=== PATIENT | female | born 1945 | race Caucasian/White ===

== ENCOUNTER 2018-10-27 11:46 | Observation (INO) | payer MEDICARE ==
[2018-10-27] MEDS ORDERED: Sodium Chloride 0.9% 1000 ML 1,000 ML IV STA (12:16)
[2018-10-27 12:28] LABS: BASOPHIL % 0.4 % (0.0-0.4); Basophil (Absolute #) 0.04 (0-0.4); Eosinophil % 1.5 % (0.00-5.0); Eosinophil (Absolute #) 0.15 (0-0.5); Granulocytes % 72.1 % (36.0-66.0); Hematocrit 24.3 % (35-47); Lymphocyte (Absolute #) 1.49 (1.0-4.6); Lymphocytes % 14.7 % (24.0-44.0); Mean Cell Volume 76.7 fl (78-100); Mean Corpuscular Hgb Concent. 28.8 g/dl (32-36); Mean Platelet Volume 8.7 fl (6-9.5); Monocyte (Absolute #) 1.14 (0.0-1.3); Monocytes % 11.3 % (0.0-12.0); Platelet Count 604 K/mm3 (150-450); Red Blood Count 3.17 M/mm3 (4.1-5.4); White Blood Count 10.1 K/mm3 (4.0-10.5)
[2018-10-27 12:32] LABS: INR 1.69 (0.8-3.0); PROTIME 19.8 SECONDS (9.95-12.35)
[2018-10-27] MEDS ORDERED: Sodium Chloride 0.9% 1000 ML 1,000 ML ONE (12:37)
[2018-10-27 12:47] LABS: ALBUMIN 3.4 g/dL (3.5-5.0); ALKALINE PHOSPHATASE 47 U/L (38-126); ANION GAP 14.3 MEQ/L (5-15); BLOOD UREA NITROGEN 17 mg/dL (7-17); CHLORIDE 99 mmol/L (98-107); Calcium 8.8 mg/dL (8.4-10.2); Carbon Dioxide 25 mmol/L (22-30); Creatinine 1 0.71 mg/dL (0.52-1.04); Glucose 184 mg/dL (74-106); NT PRO BNP 4940 pg/mL (0-900); SGOT/AST 15 U/L (14-36); SGPT/ALT 11 U/L (0-35); SODIUM 135 mmol/L (137-145); Total Protein 7.4 g/dL (6.3-8.2)
--- NOTE | 2018-10-27 13:09 | ERPHSYRPT ---
- History of Present Illness Time Seen by Provider: 10/27/18 11:55 Source: patient, family Patient Subjective Stated Complaint: generalized weakness, fell yesterday and hit left ribs/side on the arms of her wheelchair, has become increasingly weaker since Wednesday Triage Nursing Assessment: Pt brought in by wheelchair and needed full assistance to get into gown and bed, BP 152/70, P 108, afebrile, mild weakness on left upper and lower side, no edema, denies pain while laying down Physician History: 72 y/o white female with know anemia present with worsening weakness over last 5 days. pt so weak yesterday she fell into wheelchair and complains of right rib pain. denies cp, denies abd pain. no n/v/d. no known active bleeding. pt is on Eliquis. pt states she is eating and drinking as usual Timing/Duration: day(s) (5) Severity: moderate Associated Symptoms: weakness, No nausea, No vomiting, No abdominal pain, No shortness of breath, No chest pain, No syncope Allergies/Adverse Reactions: aspirin Allergy (Verified 10/27/18 12:02) codeine Allergy (Verified 10/27/18 12:02) methocarbamol [From Robaxin] Allergy (Verified 10/27/18 12:02) morphine Adverse Reaction (Verified 10/27/18 12:02) Home Medications: Apixaban [Eliquis] 5 mg PO DAILY 10/27/18 [History] Insulin Lispro Protamin/Lispro [Humalog Mix 75-25 Kwikpen] 20 units SQ BID 10/27 [History] Magnesium Oxide [Magnesium] 400 mg PO DAILY 10/27/18 [History] Potassium Chloride 10 Meq Tab* [Klor Con 10 MEQ] 20 meq PO DAILY 10/27/18 [ History] - Review of Systems Constitutional: Weakness Eyes: No Symptoms Ears, Nose, & Throat: No Symptoms Respiratory: No Symptoms Cardiac: No Symptoms Abdominal/Gastrointestinal: No Symptoms Genitourinary Symptoms: No Symptoms Musculoskeletal: No Symptoms Skin: No Symptoms Neurological: No Symptoms Psychological: No Symptoms Endocrine: No Symptoms Hematologic/Lymphatic: Anemia Immunological/Allergic: No Symptoms All Other Systems: Reviewed and Negative - Past Medical History Pertinent Past Medical History: Yes Neurological History: No Pertinent History ENT History: No Pertinent History Cardiac History: Arrhythmia, Coronary Artery Disease, High Cholesterol Respiratory History: No Pertinent History Endocrine Medical History: Diabetes Type II - Past Surgical History Past Surgical History: Yes Cardiac: Pacemaker, Other Gastrointestinal: Appendectomy Musculoskeletal: Other Female Surgical History: Tubal Ligation Other Surgical History: cervical and lower back surgeries, - Social History Smoking Status: Current every day smoker How long have you smoked: 60 years Exposure to second hand smoke: Yes Drug Use: none Patient Lives Alone: No - Nursing Vital Signs Nursing Vital Signs: Initial Vital Signs Temperature 98.4 F 10/27/18 11:46 Pulse Rate 110 H 10/27/18 11:46 Respiratory Rate 17 10/27/18 11:46 Blood Pressure 152/70 10/27/18 11:46 O2 Sat by Pulse Oximetry 99 10/27/18 11:46 Pain Scale Pain Intensity 0 - Physical Exam General Appearance: no apparent distress, mild distress, alert, thin Eye Exam: PERRL/EOMI Ears, Nose, Throat Exam: normal ENT inspection, moist mucous membranes Neck Exam: normal inspection, non-tender, supple, full range of motion Respiratory Exam: normal breath sounds, lungs clear, airway intact, No chest tenderness, No respiratory distress Cardiovascular Exam: regular rate/rhythm, normal heart sounds, normal peripheral pulses Gastrointestinal/Abdomen Exam: soft, normal bowel sounds, No tenderness, No guarding, No rebound Pelvic Exam: not done Rectal Exam: not done Back Exam: normal inspection, normal range of motion, CVA tenderness Extremity Exam: normal inspection, normal range of motion, pelvis stable Neurologic Exam: alert, oriented x 3, cooperative, bdc manager II-XII nml as tested Skin Exam: normal color, warm, dry Lymphatic Exam: No adenopathy SpO2 Interpretation: normal SpO2: 99 O2 Delivery: Room Air - Course EKG Interpreted by Me: RATE (106), Sinus Rhythm, Sinus Tach, NORMAL AXIS, NORMAL INTERVALS, NORMAL QRS Ordered Tests: Active Orders 24 hr Category Date Time Status Processing Associate STAT Care 10/27/18 12:18 Active EKG-ER Only STAT Care 10/27/18 12:16 Active IV Insertion STAT Care 10/27/18 12:16 Active Pulse Oximetry (ED) STAT Care 10/27/18 12:16 Active RIBS UNILATERAL Stat Exams 10/27/18 13:44 Ordered CBC W DIFF Stat Lab 10/27/18 12:15 Completed CMP Stat Lab 10/27/18 12:15 Completed MAGNESIUM Stat Lab 10/27/18 12:15 Completed NT PRO BNP Stat Lab 10/27/18 12:15 Completed PROTIME WITH INR Stat Lab 10/27/18 12:15 Completed TROPONIN Q3H Lab 10/27/18 12:15 Completed TROPONIN Q3H Lab 10/27/18 15:30 Ordered TROPONIN Q3H Lab 10/27/18 18:30 Ordered TROPONIN Q3H Lab 10/27/18 21:30 Ordered TROPONIN Q3H Lab 10/28/18 00:30 Ordered UA W/RFX UR CULTURE Stat Lab 10/27/18 13:56 Ordered Transfer Order Routine Transfer 10/27/18 Ordered Medication Summary Generic Name Dose Route Start Last Admin Trade Name Freq PRN Reason Stop Dose Admin Furosemide 20 mg 10/28/18 14:04 Lasix 20 Mg/2 Ml IV 10/28/18 14:05 STAT ONE Discontinued Medications Generic Name Dose Route Start Last Admin Trade Name Freq PRN Reason Stop Dose Admin Sodium Chloride 1,000 mls @ 999 mls/hr 10/27/18 12:16 10/27/18 13:43 Sodium Chloride 0.9% 1000 Ml IV 10/27/18 13:16 Infused .Q1H1M STA Infusion Sodium Chloride Confirm 10/27/18 12:37 Sodium Chloride 0.9% 1000 Ml Administered 10/27/18 12:38 Dose 1,000 mls @ ud .ROUTE .STK-MED ONE Lab/Rad Data: Laboratory Result Diagrams 10/27/18 12:15 10/27/18 12:15 Laboratory Results 10/27/18 10/27/18 10/27/18 Range/Units 12:15 12:15 12:15 WBC (4.0-10.5) K/mm3 RBC (4.1-5.4) M/mm3 Hgb (12.0-16.0) gm/dl Hct (35-47) % MCV (78-100) fl MCH (26-32) pg MCHC (32-36) g/dl RDW (11.5-14.0) % Plt Count (150-450) K/mm3 MPV (6-9.5) fl Gran % (36.0-66.0) % Eos # (Auto) (0-0.5) Absolute Lymphs (auto) (1.0-4.6) Absolute Monos (auto) (0.0-1.3) Lymphocytes % (24.0-44.0) % Monocytes % (0.0-12.0) % Eosinophils % (0.00-5.0) % Basophils % (0.0-0.4) % Absolute Granulocytes (1.4-6.9) Basophils # (0-0.4) PT 19.8 H (9.95-12.35) SECONDS INR 1.69 (0.8-3.0) Sodium 135 L (137-145) mmol/L Potassium 4.0 (3.5-5.1) mmol/L Chloride 99 (98-107) mmol/L Carbon Dioxide 25 (22-30) mmol/L Anion Gap 14.3 (5-15) MEQ/L BUN 17 (7-17) mg/dL Creatinine 0.71 (0.52-1.04) mg/dL Estimated GFR > 60.0 ML/MIN Glucose 184 H (74-106) mg/dL Calcium 8.8 (8.4-10.2) mg/dL Magnesium 2.0 (1.6-2.3) mg/dL Total Bilirubin 0.30 (0.2-1.3) mg/dL AST 15 (14-36) U/L ALT 11 (0-35) U/L Alkaline Phosphatase 47 (38-126) U/L Troponin I < 0.012 (0.000-0.034) ng/mL NT-Pro-B Natriuret Pep 4940 H (0-900) pg/mL Serum Total Protein 7.4 (6.3-8.2) g/dL Albumin 3.4 L (3.5-5.0) g/dL 10/27/18 Range/Units 12:15 WBC 10.1 (4.0-10.5) K/mm3 RBC 3.17 L (4.1-5.4) M/mm3 Hgb 7.0 L (12.0-16.0) gm/dl Hct 24.3 L (35-47) % MCV 76.7 L (78-100) fl MCH 22.0 L (26-32) pg MCHC 28.8 L (32-36) g/dl RDW 17.0 H (11.5-14.0) % Plt Count 604 H (150-450) K/mm3 MPV 8.7 (6-9.5) fl Gran % 72.1 H (36.0-66.0) % Eos # (Auto) 0.15 (0-0.5) Absolute Lymphs (auto) 1.49 (1.0-4.6) Absolute Monos (auto) 1.14 (0.0-1.3) Lymphocytes % 14.7 L (24.0-44.0) % Monocytes % 11.3 (0.0-12.0) % Eosinophils % 1.5 (0.00-5.0) % Basophils % 0.4 (0.0-0.4) % Absolute Granulocytes 7.30 H (1.4-6.9) Basophils # 0.04 (0-0.4) PT (9.95-12.35) SECONDS INR (0.8-3.0) Sodium (137-145) mmol/L Potassium (3.5-5.1) mmol/L Chloride (98-107) mmol/L Carbon Dioxide (22-30) mmol/L Anion Gap (5-15) MEQ/L BUN (7-17) mg/dL Creatinine (0.52-1.04) mg/dL Estimated GFR ML/MIN Glucose (74-106) mg/dL Calcium (8.4-10.2) mg/dL Magnesium (1.6-2.3) mg/dL Total Bilirubin (0.2-1.3) mg/dL AST (14-36) U/L ALT (0-35) U/L Alkaline Phosphatase (38-126) U/L Troponin I (0.000-0.034) ng/mL NT-Pro-B Natriuret Pep (0-900) pg/mL Serum Total Protein (6.3-8.2) g/dL Albumin (3.5-5.0) g/dL - Progress Progress: unchanged Progress Note: 10/27/18 13:[address] pham. i reviewed pt hx, condition, lab and ekg results. he accepts pt for observation and agrees with transfusion prbcs Discussed with : Praful Counseled pt/family regarding: lab results, diagnosis - Departure Departure Disposition: Home Clinical Impression: Symptomatic anemia, Weakness Condition: Stable Critical Care Time: Yes Critical Care Time(excluding separately billable procedures): 30-74 minutes Referrals: MECHE PHAM MD [Primary Care Provider] -
[2018-10-27 14:07] LABS: Appearance CLEAR (CLEAR); Bilirubin NEGATIVE (NEGATIVE); Blood NEGATIVE Ery/ul (0-5); Epithelial Cells RARE /HPF (FEW); Glucose NEGATIVE (NEGATIVE); Ketones NEGATIVE (NEGATIVE); Leukocyte Esterase NEGATIVE (NEGATIVE); Nitrite NEGATIVE (NEGATIVE); Protein,Urine Dip 100 (Negative); Specific Gravity 1.008 (1.005-1.025); Urobilinogen NEGATIVE mg/dL (0-1)
[2018-10-27] MEDS ORDERED: Lasix 40 MG/4 ML ONE (14:14)
[2018-10-27 14:16] LABS: Bacteria NONE SEEN /HPF (NEGATIVE); RBC NONE SEEN /HPF (0-2)
[2018-10-27] MEDS ORDERED: Lasix 40 MG/4 ML IV SCH (14:22)
[2018-10-27] MEDS ORDERED: Sodium Chloride 0.9% 1000 ML 1,000 ML IV SCH (14:22)
--- NOTE | 2018-10-27 14:23 | XRAY ---
Indication: Pain following fall. Comparison: None 2 views of the right ribs demonstrates mild osteopenia, right lung calcified granuloma, lower cervical fusion surgery, lower lumbar fusion surgery, lumbar degenerative spondylosis, left carotid endarterectomy, cardiac pacer leads, and chronic pancreatitis calcifications. No other bony, articular, or soft tissue abnormalities. Impression: Nonacute right ribs with chronic features.
[2018-10-27 14:37] LABS: ABO TYPING A; Antibody Screen NEGATIVE (NEGATIVE); RH TYPING NEGATIVE
[2018-10-27 14:40] LABS: CROSS MATCH (PRBC) COMPATIBLE (COMPATIBLE)
[2018-10-27] MEDS: TYLENOL 325 MG PO PRN ×2 (14:59→21:13)
[2018-10-27 15:57] LABS: Slide Review 1 YES
[2018-10-27] MEDS: Klor Con 10 MEQ PO SCH (21:13)
[2018-10-27] MEDS: NovoLOG Insulin SQ PRN (21:15)
[2018-10-27 22:47] LABS: Hematocrit 31.8 % (35-47); Hemoglobin 9.8 gm/dl (12.0-16.0)
[2018-10-28 06:09] LABS: BASOPHIL % 0.4 % (0.0-0.4); Basophil (Absolute #) 0.04 (0-0.4); Eosinophil % 2.7 % (0.00-5.0); Eosinophil (Absolute #) 0.25 (0-0.5); Granulocyte Absolute (ANC) 6.24 (1.4-6.9); Granulocytes % 68.3 % (36.0-66.0); Hematocrit 31.2 % (35-47); Hemoglobin 9.6 gm/dl (12.0-16.0); Lymphocyte (Absolute #) 1.65 (1.0-4.6); Mean Cell Volume 77.2 fl (78-100); Mean Corpuscular Hgb Concent. 30.8 g/dl (32-36); Mean Platelet Volume 9.2 fl (6-9.5); Monocyte (Absolute #) 0.97 (0.0-1.3); Monocytes % 10.6 % (0.0-12.0); Platelet Count 582 K/mm3 (150-450); Red Blood Count 4.04 M/mm3 (4.1-5.4); Red Cell Distribution Width 17.3 % (11.5-14.0); White Blood Count 9.2 K/mm3 (4.0-10.5)
[2018-10-28 06:16] LABS: Mean Corpuscular Hemoglobin 23.7 pg (26-32)
[2018-10-28 06:21] LABS: INR 1.51 (0.8-3.0); PROTIME 17.6 SECONDS (9.95-12.35)
[2018-10-28 06:25] LABS: ANION GAP 12.3 MEQ/L (5-15); BLOOD UREA NITROGEN 17 mg/dL (7-17); CHLORIDE 100 mmol/L (98-107); Calcium 8.6 mg/dL (8.4-10.2); Carbon Dioxide 28 mmol/L (22-30); Creatinine 1 0.75 mg/dL (0.52-1.04); Glucose 177 mg/dL (74-106); Potassium 3.6 mmol/L (3.5-5.1); SODIUM 137 mmol/L (137-145)
[2018-10-28 07:06] VITALS: O2SAT 96
[2018-10-28] MEDS: NovoLOG Insulin SQ PRN ×2 (08:25→13:07)
[2018-10-28] MEDS: Klor Con 10 MEQ PO SCH (09:33)
[2018-10-28] MEDS ORDERED: MAG-OX 400 PO SCH (10:00)
[2018-10-28] MEDS ORDERED: NON-FORMULARY ITEM (Magnesium Oxide [Magnesium] 400 MG) PO SCH (10:00)
[2018-10-28 12:30] VITALS: BP 131/60; PULSE 102
--- NOTE | 2018-10-28 13:11 | PCM.SSS ---
History of Present Illness - Chief Complaint Chief Complaint: weakness for few days History of Present Illness: is a 72 year old female came to ER with c/o weakness for few weakness - Review of Systems Constitutional: No Fever, No Chills Eyes: No Symptoms Ears, Nose, & Throat: No Symptoms Respiratory: No Cough, No Short Of Breath Cardiac: No Chest Pain, No Edema, No Syncope Abdominal/Gastrointestinal: No Abdominal Pain, No Nausea, No Vomiting, No Diarrhea Genitourinary Symptoms: No Dysuria Musculoskeletal: No Back Pain, No Neck Pain Skin: No Rash Neurological: No Dizziness, No Focal Weakness, No Sensory Changes Psychological: No Symptoms Endocrine: No Symptoms Hematologic/Lymphatic: No Symptoms Immunological/Allergic: No Symptoms Medications & Allergies Home Medications: Home Medication List Apixaban [Eliquis] 2.5 mg PO BID 10/27/18 [History Confirmed 10/27/18] Insulin Lispro Protamin/Lispro [Humalog Mix 75-25 Kwikpen] 20 units SQ BID PRN 10/27/18 [History Confirmed 10/27/18] Magnesium Oxide [Magnesium] 400 mg PO DAILY 10/27/18 [History Confirmed 10/27/18 ] Potassium Chloride 10 Meq Tab* [Klor Con 10 MEQ] 10 meq PO BID 10/27/18 [ History Confirmed 10/27/18] Ferrous Fumarate/Ascorbic Acid [Praful-Sequels 65-25 mg Caplet] 1 each PO DAILY 30 Days #30 tablet.er 10/28/18 [Rx] Allergies/Adverse Reactions: Allergies Allergy/AdvReac Type Severity Reaction Status Date / Time aspirin Allergy Verified 10/27/18 12:02 codeine Allergy Verified 10/27/18 12:02 methocarbamol [From Robaxin] Allergy Verified 10/27/18 12:02 morphine AdvReac Verified 10/27/18 12:02 - Past Medical History Past Medical History: Yes Neurological History: No Pertinent History ENT History: No Pertinent History Cardiac History: Arrhythmia, Coronary Artery Disease, High Cholesterol Respiratory History: No Pertinent History Endocrine Medical History: Diabetes Type II Musculoskelatal History: No Pertinent History GI Medical History: No Pertinent History History: No Pertinent History Pyscho-Social History: No Pertinent History Reproductive Disorders: No Pertinent History - Female History Are you now?: No - Past Surgical History Past Surgical History: Yes Neuro Surgical History: No Pertinent History Cardiac History: Pacemaker, Other Respiratory Surgery: No Pertinent History GI Surgical History: Appendectomy Musculskeletal Surgical Hx: Other Female Surgical History: Tubal Ligation Other Surgical History: cervical and lower back surgeries, - Social History Smoking Status: Current some day smoker How long have you smoked: 60 years Exposure to second hand smoke: Yes Alcohol: None Drug Use: none - Physical Exam Vital Signs: Vital Signs - 24 hr Temp Pulse Resp BP Pulse Ox 10/28/18 12:00 99.2 F 102 H 23 131/60 96 10/28/18 08:00 24 10/28/18 07:05 99.6 F 101 H 24 135/65 96 10/28/18 04:00 98.3 F 91 H 18 140/61 95 10/28/18 00:00 98.5 F 96 H 18 119/58 96 10/27/18 19:54 97.2 F 95 H 25 H 140/89 96 10/27/18 15:50 98.8 F 97 H 18 139/69 96 10/27/18 14:58 100.6 F 109 H 20 157/70 96 10/27/18 14:41 99.3 F 10/27/18 14:27 100.6 F 109 H 18 157/70 96 10/27/18 14:04 99 10/27/18 13:21 105 H 19 161/91 98 General Appearance: no apparent distress, alert Neurologic Exam: alert, oriented x 3, cooperative, normal mood/affect, nml cerebellar function, nml station & gait, sensation nml, No motor deficits Eye Exam: PERRL/EOMI, eyes nml inspection Ears, Nose, Throat Exam: normal ENT inspection, TMs normal, pharynx normal, moist mucous membranes Neck Exam: normal inspection, non-tender, supple, full range of motion Respiratory Exam: normal breath sounds, lungs clear, No respiratory distress Cardiovascular Exam: regular rate/rhythm, normal heart sounds, normal peripheral pulses Gastrointestinal/Abdomen Exam: soft, normal bowel sounds, No tenderness, No mass Back Exam: normal inspection, normal range of motion, No CVA tenderness, No vertebral tenderness Extremity Exam: normal inspection, normal range of motion, pelvis stable Skin Exam: normal color, warm, dry, No rash Lymphatic Exam: No adenopathy Results - Labs Lab/Micro Results: Accuchecks Date 10/28/18 Date 10/27/18 Time 07:30 Time 16:34 Accucheck Value: 216 Accucheck Value: 298 Accucheck Value: 224 Lab Results-Last 24 Hours 10/27/18 10/27/18 10/27/18 Range/Units 12:15 12:15 13:15 WBC (4.0-10.5) K/mm3 RBC (4.1-5.4) M/mm3 Hgb (12.0-16.0) gm/dl Hct (35-47) % MCV (78-100) fl MCH (26-32) pg MCHC (32-36) g/dl RDW (11.5-14.0) % Plt Count (150-450) K/mm3 MPV (6-9.5) fl Gran % (36.0-66.0) % Eos # (Auto) (0-0.5) Absolute Lymphs (auto) (1.0-4.6) Absolute Monos (auto) (0.0-1.3) Lymphocytes % (24.0-44.0) % Monocytes % (0.0-12.0) % Eosinophils % (0.00-5.0) % Basophils % (0.0-0.4) % Absolute Granulocytes (1.4-6.9) Basophils # (0-0.4) PT (9.95-12.35) SECONDS INR (0.8-3.0) Sodium (137-145) mmol/L Potassium (3.5-5.1) mmol/L Chloride (98-107) mmol/L Carbon Dioxide (22-30) mmol/L Anion Gap (5-15) MEQ/L BUN (7-17) mg/dL Creatinine (0.52-1.04) mg/dL Estimated GFR ML/MIN Glucose (74-106) mg/dL Calcium (8.4-10.2) mg/dL Troponin I < 0.012 (0.000-0.034) ng/mL Urine Color (YELLOW) Urine Appearance (CLEAR) Urine pH (5-6) Ur Specific Thompson (1.005-1.025) Urine Protein (Negative) Urine Ketones (NEGATIVE) Urine Blood (0-5) Dustin/ul Urine Nitrite (NEGATIVE) Urine Bilirubin (NEGATIVE) Urine Urobilinogen (0-1) mg/dL Ur Leukocyte Esterase (NEGATIVE) Urine WBC (Auto) (0-5) /HPF Urine RBC (Auto) (0-2) /HPF U Epithel Cells (Auto) (FEW) /HPF Urine Bacteria (Auto) (NEGATIVE) /HPF Urine Culture Reflexed (NO) Urine Glucose (NEGATIVE) mg/dL Slides for Path Review YES ABO Group A Rh Factor NEGATIVE Antibody Screen NEGATIVE (NEGATIVE) Crossmatch COMPATIBLE (COMPATIBLE) 10/27/18 10/27/18 10/27/18 Range/Units 13:15 13:56 15:30 WBC (4.0-10.5) K/mm3 RBC (4.1-5.4) M/mm3 Hgb (12.0-16.0) gm/dl Hct (35-47) % MCV (78-100) fl MCH (26-32) pg MCHC (32-36) g/dl RDW (11.5-14.0) % Plt Count (150-450) K/mm3 MPV (6-9.5) fl Gran % (36.0-66.0) % Eos # (Auto) (0-0.5) Absolute Lymphs (auto) (1.0-4.6) Absolute Monos (auto) (0.0-1.3) Lymphocytes % (24.0-44.0) % Monocytes % (0.0-12.0) % Eosinophils % (0.00-5.0) % Basophils % (0.0-0.4) % Absolute Granulocytes (1.4-6.9) Basophils # (0-0.4) PT (9.95-12.35) SECONDS INR (0.8-3.0) Sodium (137-145) mmol/L Potassium (3.5-5.1) mmol/L Chloride (98-107) mmol/L Carbon Dioxide (22-30) mmol/L Anion Gap (5-15) MEQ/L BUN (7-17) mg/dL Creatinine (0.52-1.04) mg/dL Estimated GFR ML/MIN Glucose (74-106) mg/dL Calcium (8.4-10.2) mg/dL Troponin I < 0.012 (0.000-0.034) ng/mL Urine Color YELLOW (YELLOW) Urine Appearance CLEAR (CLEAR) Urine pH 6.0 (5-6) Ur Specific Thompson 1.008 (1.005-1.025) Urine Protein 100 (Negative) Urine Ketones NEGATIVE (NEGATIVE) Urine Blood NEGATIVE (0-5) Dustin/ul Urine Nitrite NEGATIVE (NEGATIVE) Urine Bilirubin NEGATIVE (NEGATIVE) Urine Urobilinogen NEGATIVE (0-1) mg/dL Ur Leukocyte Esterase NEGATIVE (NEGATIVE) Urine WBC (Auto) NONE (0-5) /HPF Urine RBC (Auto) NONE SEEN (0-2) /HPF U Epithel Cells (Auto) RARE (FEW) /HPF Urine Bacteria (Auto) NONE SEEN (NEGATIVE) /HPF Urine Culture Reflexed NO (NO) Urine Glucose NEGATIVE (NEGATIVE) mg/dL Slides for Path Review ABO Group Rh Factor Antibody Screen (NEGATIVE) Crossmatch COMPATIBLE (COMPATIBLE) 10/27/18 10/27/18 10/27/18 Range/Units 19:40 22:42 22:42 WBC (4.0-10.5) K/mm3 RBC (4.1-5.4) M/mm3 Hgb 9.8 L D (12.0-16.0) gm/dl Hct 31.8 L (35-47) % MCV (78-100) fl MCH (26-32) pg MCHC (32-36) g/dl RDW (11.5-14.0) % Plt Count (150-450) K/mm3 MPV (6-9.5) fl Gran % (36.0-66.0) % Eos # (Auto) (0-0.5) Absolute Lymphs (auto) (1.0-4.6) Absolute Monos (auto) (0.0-1.3) Lymphocytes % (24.0-44.0) % Monocytes % (0.0-12.0) % Eosinophils % (0.00-5.0) % Basophils % (0.0-0.4) % Absolute Granulocytes (1.4-6.9) Basophils # (0-0.4) PT (9.95-12.35) SECONDS INR (0.8-3.0) Sodium (137-145) mmol/L Potassium (3.5-5.1) mmol/L Chloride (98-107) mmol/L Carbon Dioxide (22-30) mmol/L Anion Gap (5-15) MEQ/L BUN (7-17) mg/dL Creatinine (0.52-1.04) mg/dL Estimated GFR ML/MIN Glucose (74-106) mg/dL Calcium (8.4-10.2) mg/dL Troponin I < 0.012 < 0.012 (0.000-0.034) ng/mL Urine Color (YELLOW) Urine Appearance (CLEAR) Urine pH (5-6) Ur Specific Thompson (1.005-1.025) Urine Protein (Negative) Urine Ketones (NEGATIVE) Urine Blood (0-5) Dustin/ul Urine Nitrite (NEGATIVE) Urine Bilirubin (NEGATIVE) Urine Urobilinogen (0-1) mg/dL Ur Leukocyte Esterase (NEGATIVE) Urine WBC (Auto) (0-5) /HPF Urine RBC (Auto) (0-2) /HPF U Epithel Cells (Auto) (FEW) /HPF Urine Bacteria (Auto) (NEGATIVE) /HPF Urine Culture Reflexed (NO) Urine Glucose (NEGATIVE) mg/dL Slides for Path Review ABO Group Rh Factor Antibody Screen (NEGATIVE) Crossmatch (COMPATIBLE) 10/28/18 10/28/18 10/28/18 Range/Units 00:36 05:34 05:34 WBC 9.2 (4.0-10.5) K/mm3 RBC 4.04 L (4.1-5.4) M/mm3 Hgb 9.6 L (12.0-16.0) gm/dl Hct 31.2 L (35-47) % MCV 77.2 L (78-100) fl MCH 23.7 L (26-32) pg MCHC 30.8 L (32-36) g/dl RDW 17.3 H (11.5-14.0) % Plt Count 582 H (150-450) K/mm3 MPV 9.2 (6-9.5) fl Gran % 68.3 H (36.0-66.0) % Eos # (Auto) 0.25 (0-0.5) Absolute Lymphs (auto) 1.65 (1.0-4.6) Absolute Monos (auto) 0.97 (0.0-1.3) Lymphocytes % 18.0 L (24.0-44.0) % Monocytes % 10.6 (0.0-12.0) % Eosinophils % 2.7 (0.00-5.0) % Basophils % 0.4 (0.0-0.4) % Absolute Granulocytes 6.24 (1.4-6.9) Basophils # 0.04 (0-0.4) PT (9.95-12.35) SECONDS INR (0.8-3.0) Sodium 137 (137-145) mmol/L Potassium 3.6 (3.5-5.1) mmol/L Chloride 100 (98-107) mmol/L Carbon Dioxide 28 (22-30) mmol/L Anion Gap 12.3 (5-15) MEQ/L BUN 17 (7-17) mg/dL Creatinine 0.75 (0.52-1.04) mg/dL Estimated GFR > 60.0 ML/MIN Glucose 177 H (74-106) mg/dL Calcium 8.6 (8.4-10.2) mg/dL Troponin I < 0.012 (0.000-0.034) ng/mL Urine Color (YELLOW) Urine Appearance (CLEAR) Urine pH (5-6) Ur Specific Thompson (1.005-1.025) Urine Protein (Negative) Urine Ketones (NEGATIVE) Urine Blood (0-5) Dustin/ul Urine Nitrite (NEGATIVE) Urine Bilirubin (NEGATIVE) Urine Urobilinogen (0-1) mg/dL Ur Leukocyte Esterase (NEGATIVE) Urine WBC (Auto) (0-5) /HPF Urine RBC (Auto) (0-2) /HPF U Epithel Cells (Auto) (FEW) /HPF Urine Bacteria (Auto) (NEGATIVE) /HPF Urine Culture Reflexed (NO) Urine Glucose (NEGATIVE) mg/dL Slides for Path Review ABO Group Rh Factor Antibody Screen (NEGATIVE) Crossmatch (COMPATIBLE) 10/28/18 Range/Units 05:34 WBC (4.0-10.5) K/mm3 RBC (4.1-5.4) M/mm3 Hgb (12.0-16.0) gm/dl Hct (35-47) % MCV (78-100) fl MCH (26-32) pg MCHC (32-36) g/dl RDW (11.5-14.0) % Plt Count (150-450) K/mm3 MPV (6-9.5) fl Gran % (36.0-66.0) % Eos # (Auto) (0-0.5) Absolute Lymphs (auto) (1.0-4.6) Absolute Monos (auto) (0.0-1.3) Lymphocytes % (24.0-44.0) % Monocytes % (0.0-12.0) % Eosinophils % (0.00-5.0) % Basophils % (0.0-0.4) % Absolute Granulocytes (1.4-6.9) Basophils # (0-0.4) PT 17.6 H (9.95-12.35) SECONDS INR 1.51 (0.8-3.0) Sodium (137-145) mmol/L Potassium (3.5-5.1) mmol/L Chloride (98-107) mmol/L Carbon Dioxide (22-30) mmol/L Anion Gap (5-15) MEQ/L BUN (7-17) mg/dL Creatinine (0.52-1.04) mg/dL Estimated GFR ML/MIN Glucose (74-106) mg/dL Calcium (8.4-10.2) mg/dL Troponin I (0.000-0.034) ng/mL Urine Color (YELLOW) Urine Appearance (CLEAR) Urine pH (5-6) Ur Specific Thompson (1.005-1.025) Urine Protein (Negative) Urine Ketones (NEGATIVE) Urine Blood (0-5) Dustin/ul Urine Nitrite (NEGATIVE) Urine Bilirubin (NEGATIVE) Urine Urobilinogen (0-1) mg/dL Ur Leukocyte Esterase (NEGATIVE) Urine WBC (Auto) (0-5) /HPF Urine RBC (Auto) (0-2) /HPF U Epithel Cells (Auto) (FEW) /HPF Urine Bacteria (Auto) (NEGATIVE) /HPF Urine Culture Reflexed (NO) Urine Glucose (NEGATIVE) mg/dL Slides for Path Review ABO Group Rh Factor Antibody Screen (NEGATIVE) Crossmatch (COMPATIBLE) Microbiology 10/27/18 14:50 Urine Culture - Preliminary Urine, Indwelling Catheter NO GROWTH TO DATE Accuchecks Date 10/28/18 Date 10/27/18 Time 07:30 Time 16:34 Accucheck Value: 216 Accucheck Value: 298 Accucheck Value: 224 - Radiology Impressions Radiology Exams & Impressions: Radiology Procedures Category Date Time Status RIBS UNILATERAL Stat Exams 10/27/18 13:44 Completed Assessment/Plan (1) Symptomatic anemia Current Visit: Yes Status: Acute Assessment & Plan: one unitpacked red blood cells given, Hgb is 9.3. will discharge patient home Code(s): D64.9 - ANEMIA, UNSPECIFIED (2) Weakness Current Visit: Yes Status: Chronic Assessment & Plan: improved Code(s): R53.1 - WEAKNESS Hospital Summary - Hospital Course Hospital Course: Chief Complaint Diagnosis weakness for few days Allergies Allergy/AdvReac Type Severity Reaction Status Date / Time aspirin Allergy Verified 10/27/18 12:02 codeine Allergy Verified 10/27/18 12:02 methocarbamol [From Robaxin] Allergy Verified 10/27/18 12:02 morphine AdvReac Verified 10/27/18 12:02 Vital Signs (Last 24 hours) Temp Pulse Resp BP Pulse Ox 10/28/18 12:00 99.2 F 102 H 23 131/60 96 10/28/18 08:00 24 10/28/18 07:05 99.6 F 101 H 24 135/65 96 10/28/18 04:00 98.3 F 91 H 18 140/61 95 10/28/18 00:00 98.5 F 96 H 18 119/58 96 10/27/18 19:54 97.2 F 95 H 25 H 140/89 96 10/27/18 15:50 98.8 F 97 H 18 139/69 96 10/27/18 14:58 100.6 F 109 H 20 157/70 96 10/27/18 14:41 99.3 F 10/27/18 14:27 100.6 F 109 H 18 157/70 96 10/27/18 14:04 99 10/27/18 13:21 105 H 19 161/91 98 Home Medications Medication Instructions Recorded Confirmed Last Taken Type Apixaban [Eliquis] 2.5 mg PO BID 10/27/18 10/27/18 10/27/18 History Insulin Lispro Protamin/Lispro 20 units SQ BID PRN 10/27/18 10/27/18 10/26/18 History [Humalog Mix 75-25 Kwikpen] Magnesium Oxide [Magnesium] 400 mg PO DAILY 10/27/18 10/27/18 10/27/18 History Potassium Chloride 10 Meq Tab* 10 meq PO BID 10/27/18 10/27/1810/27/19 History [Klor Con 10 MEQ] Current Medications Generic Name Dose Route Start Last Admin Trade Name Ashli PRN Reason Stop Dose Admin Acetaminophen 650 mg 10/27/18 14:22 10/27/18 21:13 Tylenol 325 Mg PO 11/26/18 14:21 650 mg Q4H PRN PRN Administration PAIN, FEVER, HEADACHE Furosemide 40 mg 10/27/18 14:22 10/27/18 18:06 Lasix 40 Mg/4 Ml IV 11/26/18 14:21 40 mg BETWEEN UNITS MAURO Administration Sodium Chloride 1,000 mls @ 30 mls/hr 10/27/18 14:22 10/27/18 16:29 Sodium Chloride 0.9% 1000 Ml IV 11/26/18 14:21 30 mls/hr .Q24H MAURO Administration Insulin Aspart 0 unit 10/27/18 15:18 10/28/18 13:07 Novolog Insulin SQ 11/26/18 15:17 6 unit UD PRN Administration HYPERGLYCEMIA Magnesium Oxide 400 mg 10/28/18 10:00 10/28/18 09:33 Mag-Ox 400 PO 11/27/18 09:59 400 mg DAILY MAURO Administration Potassium Chloride 10 meq 10/27/18 22:00 10/28/18 09:33 Klor Con 10 Meq PO 11/26/18 21:59 10 meq BID MAURO Administration Discontinued Medications Generic Name Dose Route Start Last Admin Trade Name Ashli PRN Reason Stop Dose Admin Furosemide 20 mg 10/28/18 14:04 10/27/18 14:30 Lasix 20 Mg/2 Ml IV 10/28/18 14:05 20 mg STAT ONE Administration Furosemide Confirm 10/27/18 14:14 Lasix 40 Mg/4 Ml Administered 10/27/18 14:15 Dose 40 mg .ROUTE .STK-MED ONE Sodium Chloride 1,000 mls @ 999 mls/hr 10/27/18 12:16 10/27/18 13:43 Sodium Chloride 0.9% 1000 Ml IV 10/27/18 13:16 Infused .Q1H1M STA Infusion Sodium Chloride Confirm 10/27/18 12:37 Sodium Chloride 0.9% 1000 Ml Administered 10/27/18 12:38 Dose 1,000 mls @ ud .ROUTE .K-[facility] ONE Intake & Output (Last 24 hours) 10/26/18 10/27/18 10/28/18 10/29/18 11:59 11:59 11:59 11:59 Intake Total 1829 Output Total 3150 Balance -1321 Weight 57.153 kg 57.8 kg Microbiology Results (Last 24 hours) 10/27/18 14:50 Urine, Indwelling Catheter Urine Culture - Preliminary NO GROWTH TO DATE Laboratory Results (Last 24 hours) 10/28/18 10/28/18 10/28/18 05:34 05:34 05:34 WBC 9.2 RBC 4.04 L Hgb 9.6 L Hct 31.2 L MCV 77.2 L MCH 23.7 L MCHC 30.8 L RDW 17.3 H Plt Count 582 H MPV 9.2 Gran % 68.3 H Eos # (Auto) 0.25 Absolute Lymphs (auto) 1.65 Absolute Monos (auto) 0.97 Lymphocytes % 18.0 L Monocytes % 10.6 Eosinophils % 2.7 Basophils % 0.4 Absolute Granulocytes 6.24 Basophils # 0.04 PT 17.6 H INR 1.51 Sodium 137 Potassium 3.6 Chloride 100 Carbon Dioxide 28 Anion Gap 12.3 BUN 17 Creatinine 0.75 Estimated GFR > 60.0 Glucose 177 H Calcium 8.6 Troponin I Urine Color Urine Appearance Urine pH Ur Specific Thompson Urine Protein Urine Ketones Urine Blood Urine Nitrite Urine Bilirubin Urine Urobilinogen Ur Leukocyte Esterase Urine WBC (Auto) Urine RBC (Auto) U Epithel Cells (Auto) Urine Bacteria (Auto) Urine Culture Reflexed Urine Glucose Slides for Path Review ABO Group Rh Factor Antibody Screen Crossmatch 10/28/18 10/27/18 10/27/18 00:36 22:42 22:42 WBC RBC Hgb 9.8 L D Hct 31.8 L MCV MCH MCHC RDW Plt Count MPV Gran % Eos # (Auto) Absolute Lymphs (auto) Absolute Monos (auto) Lymphocytes % Monocytes % Eosinophils % Basophils % Absolute Granulocytes Basophils # PT INR Sodium Potassium Chloride Carbon Dioxide Anion Gap BUN Creatinine Estimated GFR Glucose Calcium Troponin I < 0.012 < 0.012 Urine Color Urine Appearance Urine pH Ur Specific Thompson Urine Protein Urine Ketones Urine Blood Urine Nitrite Urine Bilirubin Urine Urobilinogen Ur Leukocyte Esterase Urine WBC (Auto) Urine RBC (Auto) U Epithel Cells (Auto) Urine Bacteria (Auto) Urine Culture Reflexed Urine Glucose Slides for Path Review ABO Group Rh Factor Antibody Screen Crossmatch 10/27/18 10/27/18 10/27/18 19:40 15:30 13:56 WBC RBC Hgb Hct MCV MCH MCHC RDW Plt Count MPV Gran % Eos # (Auto) Absolute Lymphs (auto) Absolute Monos (auto) Lymphocytes % Monocytes % Eosinophils % Basophils % Absolute Granulocytes Basophils # PT INR Sodium Potassium Chloride Carbon Dioxide Anion Gap BUN Creatinine Estimated GFR Glucose Calcium Troponin I < 0.012 < 0.012 Urine Color YELLOW Urine Appearance CLEAR Urine pH 6.0 Ur Specific Thompson 1.008 Urine Protein 100 Urine Ketones NEGATIVE Urine Blood NEGATIVE Urine Nitrite NEGATIVE Urine Bilirubin NEGATIVE Urine Urobilinogen NEGATIVE Ur Leukocyte Esterase NEGATIVE Urine WBC (Auto) NONE Urine RBC (Auto) NONE SEEN U Epithel Cells (Auto) RARE Urine Bacteria (Auto) NONE SEEN Urine Culture Reflexed NO Urine Glucose NEGATIVE Slides for Path Review ABO Group Rh Factor Antibody Screen Crossmatch 10/27/18 10/27/18 10/27/18 13:15 13:15 12:15 WBC RBC Hgb Hct MCV MCH MCHC RDW Plt Count MPV Gran % Eos # (Auto) Absolute Lymphs (auto) Absolute Monos (auto) Lymphocytes % Monocytes % Eosinophils % Basophils % Absolute Granulocytes Basophils # PT INR Sodium Potassium Chloride Carbon Dioxide Anion Gap BUN Creatinine Estimated GFR Glucose Calcium Troponin I Urine Color Urine Appearance Urine pH Ur Specific Thompson Urine Protein Urine Ketones Urine Blood Urine Nitrite Urine Bilirubin Urine Urobilinogen Ur Leukocyte Esterase Urine WBC (Auto) Urine RBC (Auto) U Epithel Cells (Auto) Urine Bacteria (Auto) Urine Culture Reflexed Urine Glucose Slides for Path Review YES ABO Group A Rh Factor NEGATIVE Antibody Screen NEGATIVE Crossmatch COMPATIBLE COMPATIBLE Orders (Last 24 hours) Category Date Time Status Up With Assistance TOLERATED Activity 10/27/18 14:22 Active ACCUCHECK [Accucheck] ACHS Care 10/27/18 15:27 Active Ms Sql Developer STAT Care 10/27/18 12:18 Completed Code Status Order ROUTINE Care 10/27/18 14:22 Active EKG-ER Only STAT Care 10/27/18 12:16 Completed IV Insertion STAT Care 10/27/18 12:[address] in Observation ROUTINE Care 10/27/18 14:22 Active Pulse Oximetry (ED) STAT Care 10/27/18 12:16 Completed Telemetry q4h Care 10/27/18 15:10 Active Weight,Daily 0600 Care 10/27/18 14:22 Active Regular Diet Diet 10/27/18 Dinner Active RIBS UNILATERAL Stat Exams 10/27/18 13:44 Completed BLOOD COMPONENT REQUEST Stat Lab 10/27/18 13:15 Completed BMP AM.LAB Lab 10/28/18 05:34 Completed CBC W DIFF AM.LAB Lab 10/28/18 05:34 Completed CBC W DIFF Stat Lab 10/27/18 12:15 Completed CMP Stat Lab 10/27/18 12:15 Completed CULTURE,URINE Routine Lab 10/27/18 14:50 Results HEMOGLOBIN AND HEMATOCRIT Stat Lab 10/27/18 22:42 Completed MAGNESIUM Stat Lab 10/27/18 12:15 Completed NT PRO BNP Stat Lab 10/27/18 12:15 Completed PROTIME WITH INR AM.LAB Lab 10/28/18 05:34 Completed PROTIME WITH INR Stat Lab 10/27/18 12:15 Completed TROPONIN Q3H Lab 10/27/18 12:15 Completed TROPONIN Q3H Lab 10/27/18 15:30 Completed TROPONIN Q3H Lab 10/27/18 19:40 Completed TROPONIN Q3H Lab 10/27/18 22:42 Completed TROPONIN Q3H Lab 10/28/18 00:36 Completed TYPE AND SCREEN Stat Lab 10/27/18 13:15 Completed UA W/RFX UR CULTURE Stat Lab 10/27/18 13:56 Completed Acetaminophen 325 mg [Tylenol 325 mg] Med 10/27/18 14:22 Active 650 mg PO Q4H PRN PRN Furosemide 20 mg/2 ml [Lasix 20 MG/2 ML] Med 10/28/18 14:04 Discontinued 20 mg IV STAT ONE Furosemide 40 mg/4 ml [Lasix 40 MG/4 ML] Med 10/27/18 14:14 Discontinued 40 mg .ROUTE .STK-MED ONE Furosemide 40 mg/4 ml [Lasix 40 MG/4 ML] Med 10/27/18 14:22 Active 40 mg IV BETWEEN UNITS Insulin Aspart [NovoLOG Insulin] Med 10/27/18 15:18 Active See Dose Instructions SQ UD PRN Magnesium Oxide 400 mg [Mag-Ox 400] Med 10/28/18 10:00 Active 400 mg PO DAILY NaCl 0.9% 1000 ml [Sodium Chloride 0.9% 1000 ML] 1,000 Med 10/27/18 12:37 Discontinued ml .ROUTE UD NaCl 0.9% 1000 ml [Sodium Chloride 0.9% 1000 ML] 1,000 Med 10/27/18 14:22 Active ml IV 30 mls/hr NaCl 0.9% 1000 ml [Sodium Chloride 0.9% 1000 ML] 1,000 Med 10/27/18 12:16 Discontinued ml IV 999 mls/hr Potassium Chloride 10 Meq Tab* [Klor Con 10 MEQ] Med 10/27/18 22:00 Active 10 meq PO BID Patient Care Notes (Last 24 hours) 10/27/18 22:00 (created 10/28/18 04:01) Nursing Note by Ashwin Martinez Pt c/o severe leg cramps. tylenol given. Assisted pt to sit up on edge of bed and stand with walker to try to relieve cramping. Pt wanted to walk around, but is too weak to ambulate at this time. Pt sat on edge of bed for approximately 30 minutes before she felt she could lie back down. Pt states she gets these cramps at home all the time. Initialized on 10/28/18 04:01 - END OF NOTE 10/27/18 18:25 (created 10/27/18 18:26) Nursing Note by Carmita Donovan 2nd unit of PRBCs hung Initialized on 10/27/18 18:26 - END OF NOTE 10/27/18 15:05 (created 10/27/18 15:09) Nursing Note by Carmita Donovan 1st unit of PRBCs hung. Initialized on 10/27/18 15:09 - END OF NOTE 10/27/18 14:55 (created 10/27/18 15:07) Nursing Note by Carmita Donovan received from ER. pt requesting swain catheter as she is getting lasix and having difficulty getting around at this time, swain cath placed and clear yellow urine evacuated from bladder. IV flushed without difficulty. temp 100.6 tympanic, 99.6 orally. pt says she has been "chilling" at home with fevers for a few days. medicated with tylenol prior to blood transfusion. Initialized on 10/27/18 15:07 - END OF NOTE - Vitals & Intake/Output Vital Signs: Vital Signs Temperature 99.2 F 10/28/18 12:00 Pulse Rate 102 H 10/28/18 12:00 Respiratory Rate 23 10/28/18 12:00 Blood Pressure 131/60 10/28/18 12:00 O2 Sat by Pulse Oximetry 96 10/28/18 12:00 Intake & Output: Intake & Output 10/26/18 10/27/18 10/28/18 10/29/18 11:59 11:59 11:59 11:59 Intake Total 1829 Output Total 3150 Balance -1321 Weight 57.153 kg 57.8 kg - Lab Result Diagrams: 10/28/18 05:34 10/28/18 05:34 Lab Results-Last 24 Hrs: Accuchecks Date 10/28/18 Date 10/27/18 Time 07:30 Time 16:34 Accucheck Value: 216 Accucheck Value: 298 Accucheck Value: 224 Lab Results-Last 24 Hours 10/27/18 10/27/18 10/27/18 Range/Units 12:15 12:15 13:15 WBC (4.0-10.5) K/mm3 RBC (4.1-5.4) M/mm3 Hgb (12.0-16.0) gm/dl Hct (35-47) % MCV (78-100) fl MCH (26-32) pg MCHC (32-36) g/dl RDW (11.5-14.0) % Plt Count (150-450) K/mm3 MPV (6-9.5) fl Gran % (36.0-66.0) % Eos # (Auto) (0-0.5) Absolute Lymphs (auto) (1.0-4.6) Absolute Monos (auto) (0.0-1.3) Lymphocytes % (24.0-44.0) % Monocytes % (0.0-12.0) % Eosinophils % (0.00-5.0) % Basophils % (0.0-0.4) % Absolute Granulocytes (1.4-6.9) Basophils # (0-0.4) PT (9.95-12.35) SECONDS INR (0.8-3.0) Sodium (137-145) mmol/L Potassium (3.5-5.1) mmol/L Chloride (98-107) mmol/L Carbon Dioxide (22-30) mmol/L Anion Gap (5-15) MEQ/L BUN (7-17) mg/dL Creatinine (0.52-1.04) mg/dL Estimated GFR ML/MIN Glucose (74-106) mg/dL Calcium (8.4-10.2) mg/dL Troponin I < 0.012 (0.000-0.034) ng/mL Urine Color (YELLOW) Urine Appearance (CLEAR) Urine pH (5-6) Ur Specific Thompson (1.005-1.025) Urine Protein (Negative) Urine Ketones (NEGATIVE) Urine Blood (0-5) Dustin/ul Urine Nitrite (NEGATIVE) Urine Bilirubin (NEGATIVE) Urine Urobilinogen (0-1) mg/dL Ur Leukocyte Esterase (NEGATIVE) Urine WBC (Auto) (0-5) /HPF Urine RBC (Auto) (0-2) /HPF U Epithel Cells (Auto) (FEW) /HPF Urine Bacteria (Auto) (NEGATIVE) /HPF Urine Culture Reflexed (NO) Urine Glucose (NEGATIVE) mg/dL Slides for Path Review YES ABO Group A Rh Factor NEGATIVE Antibody Screen NEGATIVE (NEGATIVE) Crossmatch COMPATIBLE (COMPATIBLE) 10/27/18 10/27/18 10/27/18 Range/Units 13:15 13:56 15:30 WBC (4.0-10.5) K/mm3 RBC (4.1-5.4) M/mm3 Hgb (12.0-16.0) gm/dl Hct (35-47) % MCV (78-100) fl MCH (26-32) pg MCHC (32-36) g/dl RDW (11.5-14.0) % Plt Count (150-450) K/mm3 MPV (6-9.5) fl Gran % (36.0-66.0) % Eos # (Auto) (0-0.5) Absolute Lymphs (auto) (1.0-4.6) Absolute Monos (auto) (0.0-1.3) Lymphocytes % (24.0-44.0) % Monocytes % (0.0-12.0) % Eosinophils % (0.00-5.0) % Basophils % (0.0-0.4) % Absolute Granulocytes (1.4-6.9) Basophils # (0-0.4) PT (9.95-12.35) SECONDS INR (0.8-3.0) Sodium (137-145) mmol/L Potassium (3.5-5.1) mmol/L Chloride (98-107) mmol/L Carbon Dioxide (22-30) mmol/L Anion Gap (5-15) MEQ/L BUN (7-17) mg/dL Creatinine (0.52-1.04) mg/dL Estimated GFR ML/MIN Glucose (74-106) mg/dL Calcium (8.4-10.2) mg/dL Troponin I < 0.012 (0.000-0.034) ng/mL Urine Color YELLOW (YELLOW) Urine Appearance CLEAR (CLEAR) Urine pH 6.0 (5-6) Ur Specific [place] 1.008 (1.005-1.025) Urine Protein 100 (Negative) Urine Ketones NEGATIVE (NEGATIVE) Urine Blood NEGATIVE (0-5) Dustin/ul Urine Nitrite NEGATIVE (NEGATIVE) Urine Bilirubin NEGATIVE (NEGATIVE) Urine Urobilinogen NEGATIVE (0-1) mg/dL Ur Leukocyte Esterase NEGATIVE (NEGATIVE) Urine WBC (Auto) NONE (0-5) /HPF Urine RBC (Auto) NONE SEEN (0-2) /HPF U Epithel Cells (Auto) RARE (FEW) /HPF Urine Bacteria (Auto) NONE SEEN (NEGATIVE) /HPF Urine Culture Reflexed NO (NO) Urine Glucose NEGATIVE (NEGATIVE) mg/dL Slides for Path Review ABO Group Rh Factor Antibody Screen (NEGATIVE) Crossmatch COMPATIBLE (COMPATIBLE) 10/27/18 10/27/18 10/27/18 Range/Units 19:40 22:42 22:42 WBC (4.0-10.5) K/mm3 RBC (4.1-5.4) M/mm3 Hgb 9.8 L D (12.0-16.0) gm/dl Hct 31.8 L (35-47) % MCV (78-100) fl MCH (26-32) pg MCHC (32-36) g/dl RDW (11.5-14.0) % Plt Count (150-450) K/mm3 MPV (6-9.5) fl Gran % (36.0-66.0) % Eos # (Auto) (0-0.5) Absolute Lymphs (auto) (1.0-4.6) Absolute Monos (auto) (0.0-1.3) Lymphocytes % (24.0-44.0) % Monocytes % (0.0-12.0) % Eosinophils % (0.00-5.0) % Basophils % (0.0-0.4) % Absolute Granulocytes (1.4-6.9) Basophils # (0-0.4) PT (9.95-12.35) SECONDS INR (0.8-3.0) Sodium (137-145) mmol/L Potassium (3.5-5.1) mmol/L Chloride (98-107) mmol/L Carbon Dioxide (22-30) mmol/L Anion Gap (5-15) MEQ/L BUN (7-17) mg/dL Creatinine (0.52-1.04) mg/dL Estimated GFR ML/MIN Glucose (74-106) mg/dL Calcium (8.4-10.2) mg/dL Troponin I < 0.012 < 0.012 (0.000-0.034) ng/mL Urine Color (YELLOW) Urine Appearance (CLEAR) Urine pH (5-6) Ur Specific [place] (1.005-1.025) Urine Protein (Negative) Urine Ketones (NEGATIVE) Urine Blood (0-5) Dustin/ul Urine Nitrite (NEGATIVE) Urine Bilirubin (NEGATIVE) Urine Urobilinogen (0-1) mg/dL Ur Leukocyte Esterase (NEGATIVE) Urine WBC (Auto) (0-5) /HPF Urine RBC (Auto) (0-2) /HPF U Epithel Cells (Auto) (FEW) /HPF Urine Bacteria (Auto) (NEGATIVE) /HPF Urine Culture Reflexed (NO) Urine Glucose (NEGATIVE) mg/dL Slides for Path Review ABO Group Rh Factor Antibody Screen (NEGATIVE) Crossmatch (COMPATIBLE) 10/28/18 10/28/18 10/28/18 Range/Units 00:36 05:34 05:34 WBC 9.2 (4.0-10.5) K/mm3 RBC 4.04 L (4.1-5.4) M/mm3 Hgb 9.6 L (12.0-16.0) gm/dl Hct 31.2 L (35-47) % MCV 77.2 L (78-100) fl MCH 23.7 L (26-32) pg MCHC 30.8 L (32-36) g/dl RDW 17.3 H (11.5-14.0) % Plt Count 582 H (150-450) K/mm3 MPV 9.2 (6-9.5) fl Gran % 68.3 H (36.0-66.0) % Eos # (Auto) 0.25 (0-0.5) Absolute Lymphs (auto) 1.65 (1.0-4.6) Absolute Monos (auto) 0.97 (0.0-1.3) Lymphocytes % 18.0 L (24.0-44.0) % Monocytes % 10.6 (0.0-12.0) % Eosinophils % 2.7 (0.00-5.0) % Basophils % 0.4 (0.0-0.4) % Absolute Granulocytes 6.24 (1.4-6.9) Basophils # 0.04 (0-0.4) PT (9.95-12.35) SECONDS INR (0.8-3.0) Sodium 137 (137-145) mmol/L Potassium 3.6 (3.5-5.1) mmol/L Chloride 100 (98-107) mmol/L Carbon Dioxide 28 (22-30) mmol/L Anion Gap 12.3 (5-15) MEQ/L BUN 17 (7-17) mg/dL Creatinine 0.75 (0.52-1.04) mg/dL Estimated GFR > 60.0 ML/MIN Glucose 177 H (74-106) mg/dL Calcium 8.6 (8.4-10.2) mg/dL Troponin I < 0.012 (0.000-0.034) ng/mL Urine Color (YELLOW) Urine Appearance (CLEAR) Urine pH (5-6) Ur Specific [place] (1.005-1.025) Urine Protein (Negative) Urine Ketones (NEGATIVE) Urine Blood (0-5) Dustin/ul Urine Nitrite (NEGATIVE) Urine Bilirubin (NEGATIVE) Urine Urobilinogen (0-1) mg/dL Ur Leukocyte Esterase (NEGATIVE) Urine WBC (Auto) (0-5) /HPF Urine RBC (Auto) (0-2) /HPF U Epithel Cells (Auto) (FEW) /HPF Urine Bacteria (Auto) (NEGATIVE) /HPF Urine Culture Reflexed (NO) Urine Glucose (NEGATIVE) mg/dL Slides for Path Review ABO Group Rh Factor Antibody Screen (NEGATIVE) Crossmatch (COMPATIBLE) 10/28/18 Range/Units 05:34 WBC (4.0-10.5) K/mm3 RBC (4.1-5.4) M/mm3 Hgb (12.0-16.0) gm/dl Hct (35-47) % MCV (78-100) fl MCH (26-32) pg MCHC (32-36) g/dl RDW (11.5-14.0) % Plt Count (150-450) K/mm3 MPV (6-9.5) fl Gran % (36.0-66.0) % Eos # (Auto) (0-0.5) Absolute Lymphs (auto) (1.0-4.6) Absolute Monos (auto) (0.0-1.3) Lymphocytes % (24.0-44.0) % Monocytes % (0.0-12.0) % Eosinophils % (0.00-5.0) % Basophils % (0.0-0.4) % Absolute Granulocytes (1.4-6.9) Basophils # (0-0.4) PT 17.6 H (9.95-12.35) SECONDS INR 1.51 (0.8-3.0) Sodium (137-145) mmol/L Potassium (3.5-5.1) mmol/L Chloride (98-107) mmol/L Carbon Dioxide (22-30) mmol/L Anion Gap (5-15) MEQ/L BUN (7-17) mg/dL Creatinine (0.52-1.04) mg/dL Estimated GFR ML/MIN Glucose (74-106) mg/dL Calcium (8.4-10.2) mg/dL Troponin I (0.000-0.034) ng/mL Urine Color (YELLOW) Urine Appearance (CLEAR) Urine pH (5-6) Ur Specific [place] (1.005-1.025) Urine Protein (Negative) Urine Ketones (NEGATIVE) Urine Blood (0-5) Dustin/ul Urine Nitrite (NEGATIVE) Urine Bilirubin (NEGATIVE) Urine Urobilinogen (0-1) mg/dL Ur Leukocyte Esterase (NEGATIVE) Urine WBC (Auto) (0-5) /HPF Urine RBC (Auto) (0-2) /HPF U Epithel Cells (Auto) (FEW) /HPF Urine Bacteria (Auto) (NEGATIVE) /HPF Urine Culture Reflexed (NO) Urine Glucose (NEGATIVE) mg/dL Slides for Path Review ABO Group Rh Factor Antibody Screen (NEGATIVE) Crossmatch (COMPATIBLE) Micro Results-Entire Visit: Microbiology 10/27/18 14:50 Urine Culture - Preliminary Urine, Indwelling Catheter NO GROWTH TO DATE Accuchecks Date 10/28/18 Date 10/27/18 Time 07:30 Time 16:34 Accucheck Value: 216 Accucheck Value: 298 Accucheck Value: 224 - Radiology Exams Ordered Rad Exams-Entire Visit: Radiology Procedures Category Date Time Status RIBS UNILATERAL Stat Exams 10/27/18 13:44 Completed - Discharge Discharge Date: 10/28/18 Disposition: Home, Self-Care Condition: Stable Prescriptions: New Ferrous Fumarate/Ascorbic Acid [Praful-Sequels 65-25 mg Caplet] 1 each PO DAILY 30 Days #30 tablet.er Continue Potassium Chloride 10 Meq Tab* [Klor Con 10 MEQ] 10 meq PO BID Insulin Lispro Protamin/Lispro [Humalog Mix 75-25 Kwikpen] 20 units SQ BID PRN PRN Reason: Hyperglycemia Apixaban [Eliquis] 2.5 mg PO BID Magnesium Oxide [Magnesium] 400 mg PO DAILY Follow up with: MECHE PHAM MD [Primary Care Provider] - 1 Week
[2018-10-28] MEDS ORDERED: Lasix 20 MG/2 ML IV ONE (14:04)
== END 2018-10-28 15:25 | disposition home or self-care (01) ==
LOC: ED 11:46 → MED SURG 14:21
PROVIDERS: ADMIT General Practice; ATTEND General Practice
DX: D64.9 Anemia, unspecified (principal); R53.1 Weakness; E11.9 Type 2 diabetes mellitus without complications; R25.2 Cramp and spasm; E78.00 Pure hypercholesterolemia, unspecified; R07.81 Pleurodynia; Z79.899 Other long term (current) drug therapy; Z95.0 Presence of cardiac pacemaker; F17.200 Nicotine dependence, unspecified, uncomplicated; Z79.01 Long term (current) use of anticoagulants; Z79.4 Long term (current) use of insulin; W19.XXXA Unspecified fall, initial encounter
CPT/HCPCS: 36000; 36415; 36430; 71100; 80048; 80053; 81001; 82962; 83735; 83880; 84484; 85014; 85018; 85025; 85610; 86850; 86900; 86901; 86922; 87086; 93005; 93041; 93268; 96374; 99285; G0378; P9016; 96375; J1940; A9270-GY

== ENCOUNTER 2018-11-10 17:38 | Observation (INO) | payer MEDICARE ==
[2018-11-10] MEDS ORDERED: Sodium Chloride 0.9% 1000 ML 1,000 ML IV SCH ×2 (18:00→20:49)
--- NOTE | 2018-11-10 18:03 | ERPHSYRPT ---
- History of Present Illness Source: patient Exam Limitations: no limitations Patient Subjective Stated Complaint: pt here by ambulance for weakness, she had blood transfusion 2 weeks ago , she states they do not know why she is loosing blood, Triage Nursing Assessment: pt alert, resp easy, skin w/d/p. no edema, moves all ext well, she appears weak Timing/Duration: today Severity: moderate Modifying Factors: Improves With: nothing Associated Symptoms: fever, weakness, No nausea, No vomiting, No abdominal pain , No shortness of breath, No heartburn, No diaphoresis, No cough, No chills, No chest pain, No headaches, No loss of appetite, No malaise, No rash, No syncope, No seizure Hx Influenza Vaccination/Date Given: Yes Hx Pneumococcal Vaccination/Date Given: Yes Immunizations Up to Date: Yes <TYREL AG - Last Filed: 11/10/18 19:01> <LESLIE FARRIS - Last Filed: 11/10/18 19:43> - History of Present Illness Time Seen by Provider: 11/10/18 17:56 Physician History: 73-year-old white female with history of arrhythmia, coronary artery disease, hyperlipidemia, diabetes type 2, anemia. Brought by medics that she was noted to be sleepy and had a fever at home patient states that she's been feeling weak and is felt sleepy she'll arrives alert and awake and oriented 3. She denies any chest pain nausea vomiting shortness of breath Past medical history includes arrhythmia, coronary artery disease, hyperlipidemia, diabetes type 2, anemia, Past surgical history includes pacer, appendectomy, tubal ligation, cervical surgery, lower back surgery Social history includes tobacco use. Past surgical history (TYREL AG) Allergies/Adverse Reactions: aspirin Allergy (Verified 11/10/18 17:47) codeine Allergy (Verified 11/10/18 17:47) methocarbamol [From Robaxin] Allergy (Verified 11/10/18 17:47) morphine Adverse Reaction (Verified 11/10/18 17:47) Home Medications: Apixaban [Eliquis] 2.5 mg PO BID 10/27/18 [History] Insulin Lispro Protamin/Lispro [Humalog Mix 75-25 Kwikpen] 20 units SQ BID PRN 10/27/18 [History] Magnesium Oxide [Magnesium] 400 mg PO DAILY 10/27/18 [History] Potassium Chloride 10 Meq Tab* [Klor Con 10 MEQ] 10 meq PO BID 10/27/18 [ History] - Review of Systems Constitutional: Fever, Weakness, No Chills, No Fatigue, No Lethargy, No Malaise , No Night Sweats, No Weight Loss Eyes: No Symptoms Ears, Nose, & Throat: No Symptoms Respiratory: No Cough, No Dyspnea Cardiac: No Chest Pain, No Edema, No Syncope Abdominal/Gastrointestinal: No Abdominal Pain, No Nausea, No Vomiting, No Diarrhea Genitourinary Symptoms: No Dysuria Musculoskeletal: No Back Pain, No Neck Pain Skin: No Rash Neurological: Other (sleepy at home), No Dizziness, No Focal Weakness, No Gait Changes, No Headache, No Irritability, No Lethargy, No Paralysis, No Parasthesia , No Seizure, No Sensory Changes, No Speech Changes, No Tics, No Tremors, No Vertigo Psychological: No Symptoms Endocrine: No Symptoms All Other Systems: Reviewed and Negative <TYREL AG - Last Filed: 11/10/18 19:01> - Past Medical History Pertinent Past Medical History: Yes Neurological History: No Pertinent History ENT History: No Pertinent History Cardiac History: Arrhythmia, Coronary Artery Disease, High Cholesterol Respiratory History: No Pertinent History Endocrine Medical History: Diabetes Type II Musculoskeletal History: No Pertinent History GI Medical History: No Pertinent History History: No Pertinent History Psycho-Social History: No Pertinent History Female Reproductive Disorders: No Pertinent History Other Medical History: anemia - Past Surgical History Past Surgical History: Yes Neuro Surgical History: No Pertinent History Cardiac: Pacemaker, Other Respiratory: No Pertinent History Gastrointestinal: Appendectomy Musculoskeletal: Other Female Surgical History: Tubal Ligation Other Surgical History: cervical and lower back surgeries, - Social History Smoking Status: Current every day smoker How long have you smoked: 60 years Exposure to second hand smoke: Yes Drug Use: none Patient Lives Alone: No - Female History Hx Last Menstrual Period: psot Hx Now: No <TYREL AG - Last Filed: 11/10/18 19:01> - Physical Exam General Appearance: mild distress, alert, other (pale) Eye Exam: PERRL/EOMI, eyes nml inspection Ears, Nose, Throat Exam: normal ENT inspection, TMs normal, pharynx normal, moist mucous membranes Neck Exam: normal inspection, non-tender, supple, full range of motion Respiratory Exam: normal breath sounds, lungs clear, No respiratory distress Cardiovascular Exam: regular rate/rhythm, normal heart sounds, normal peripheral pulses, capillary refill <2 sec Gastrointestinal/Abdomen Exam: soft, normal bowel sounds, No tenderness, No mass Back Exam: normal inspection, normal range of motion, No CVA tenderness, No vertebral tenderness Extremity Exam: normal inspection, normal range of motion, pelvis stable Neurologic Exam: alert, oriented x 3, cooperative, sexton helper II-XII nml as tested, normal mood/affect, nml cerebellar function, nml station & gait, sensation nml, No motor deficits Skin Exam: pale SpO2 Interpretation: normal (96%) SpO2: 96 <TYREL AG - Last Filed: 11/10/18 19:01> - Nursing Vital Signs Nursing Vital Signs: Initial Vital Signs Temperature 100.3 F 11/10/18 17:39 Pulse Rate 105 H 11/10/18 17:39 Respiratory Rate 18 11/10/18 17:39 Blood Pressure 135/66 11/10/18 17:39 O2 Sat by Pulse Oximetry 96 11/10/18 17:39 Pain Scale Pain Intensity 0 - Course Nursing assessment & vital signs reviewed: Yes EKG Interpreted by Me: RATE (101 bpm), Sinus Tach, NORMAL AXIS, Other (EKG: Sinus tachycardia with pacer spikes normal axis no acute ST or T wave changes) - Radiology Exams Chest X-ray Interpretation: Interpreted by me (pacer in place, no acute disease process noted) <TYREL AG - Her[place] Filed: 11/10/18 19:01> Ordered Tests: Active Orders 24 hr Category Date Time Status EKG-ER Only STAT Care 11/10/18 17:57 Active IV Insertion STAT Care 11/10/18 17:57 Active CHEST 1 VIEW (PORTABLE) Stat Exams 11/10/18 17:57 Taken AMYLASE Stat Lab 11/10/18 18:35 Completed BLOOD CULTURE Stat Lab 11/10/18 18:10 Received CBC W DIFF Stat Lab 11/10/18 18:35 Completed CMP Stat Lab 11/10/18 18:35 Completed LIPASE Stat Lab 11/10/18 18:35 Completed Lactic Acid Stat Lab 11/10/18 18:50 Completed TROPONIN Q3H Lab 11/10/18 18:35 Completed TROPONIN Q3H Lab 11/10/18 21:00 Ordered TROPONIN Q3H Lab 11/11/18 00:00 Ordered TROPONIN Q3H Lab 11/11/18 03:00 Ordered TROPONIN Q3H Lab 11/11/18 06:00 Ordered UA W/RFX UR CULTURE Stat Lab 11/10/18 18:37 Completed Transfer Order Routine Transfer 11/10/18 Ordered Medication Summary Generic Name Dose Route Start Last Admin Trade Name Ashli PRN Reason Stop Dose Admin Sodium Chloride 1,000 mls @ 100 mls/hr 11/10/18 18:00 11/10/18 18:12 Sodium Chloride 0.9% 1000 Ml IV 12/10/18 17:59 100 mls/hr .Q10H MAURO Administration Lab/Rad Data: Laboratory Result Diagrams 11/10/18 18:35 11/10/18 18:35 Laboratory Results 11/10/18 11/10/18 11/10/18 Range/Units 18:50 18:37 18:35 WBC (4.0-10.5) K/mm3 RBC (4.1-5.4) M/mm3 Hgb (12.0-16.0) gm/dl Hct (35-47) % MCV (78-100) fl MCH (26-32) pg MCHC (32-36) g/dl RDW (11.5-14.0) % Plt Count (150-450) K/mm3 MPV (6-9.5) fl Gran % (36.0-66.0) % Eos # (Auto) (0-0.5) Absolute Lymphs (auto) (1.0-4.6) Absolute Monos (auto) (0.0-1.3) Lymphocytes % (24.0-44.0) % Monocytes % (0.0-12.0) % Eosinophils % (0.00-5.0) % Basophils % (0.0-0.4) % Absolute Granulocytes (1.4-6.9) Basophils # (0-0.4) Sodium (137-145) mmol/L Potassium (3.5-5.1) mmol/L Chloride (98-107) mmol/L Carbon Dioxide (22-30) mmol/L Anion Gap (5-15) MEQ/L BUN (7-17) mg/dL Creatinine (0.52-1.04) mg/dL Estimated GFR ML/MIN Glucose (74-106) mg/dL Lactic Acid 1.0 (0.4-2.0) Calcium (8.4-10.2) mg/dL Total Bilirubin (0.2-1.3) mg/dL AST (14-36) U/L ALT (0-35) U/L Alkaline Phosphatase (38-126) U/L Troponin I < 0.012 (0.000-0.034) ng/mL Serum Total Protein (6.3-8.2) g/dL Albumin (3.5-5.0) g/dL Amylase (30-110) U/L Lipase (23-300) U/L Urine Color YELLOW (YELLOW) Urine Appearance CLEAR (CLEAR) Urine pH 6.0 (5-6) Ur Specific [place] 1.016 (1.005-1.025) Urine Protein 100 (Negative) Urine Ketones NEGATIVE (NEGATIVE) Urine Blood NEGATIVE (0-5) Dustin/ul Urine Nitrite NEGATIVE (NEGATIVE) Urine Bilirubin NEGATIVE (NEGATIVE) Urine Urobilinogen NEGATIVE (0-1) mg/dL Ur Leukocyte Esterase NEGATIVE (NEGATIVE) Urine WBC (Auto) 0-2 (0-5) /HPF Urine RBC (Auto) NONE (0-2) /HPF U Epithel Cells (Auto) NONE (FEW) /HPF Urine Bacteria (Auto) NONE (NEGATIVE) /HPF Urine Mucus (Auto) SLIGHT (NEGATIVE) /HPF Urine Culture Reflexed NO (NO) Urine Glucose NEGATIVE (NEGATIVE) mg/dL ABO Group Rh Factor Antibody Screen (NEGATIVE) Crossmatch 11/10/18 11/10/18 11/10/18 Range/Units 18:35 18:35 18:35 WBC 13.8 H (4.0-10.5) K/mm3 RBC 2.87 L (4.1-5.4) M/mm3 Hgb 6.7 L* (12.0-16.0) gm/dl Hct 22.4 L (35-47) % MCV 78.0 (78-100) fl MCH 23.3 L (26-32) pg MCHC 29.9 L (32-36) g/dl RDW 18.7 H (11.5-14.0) % Plt Count 641 H (150-450) K/mm3 MPV 9.0 (6-9.5) fl Gran % 74.4 H (36.0-66.0) % Eos # (Auto) 0.19 (0-0.5) Absolute Lymphs (auto) 2.14 (1.0-4.6) Absolute Monos (auto) 1.16 (0.0-1.3) Lymphocytes % 15.5 L (24.0-44.0) % Monocytes % 8.4 (0.0-12.0) % Eosinophils % 1.4 (0.00-5.0) % Basophils % 0.3 (0.0-0.4) % Absolute Granulocytes 10.29 H (1.4-6.9) Basophils # 0.04 (0-0.4) Sodium 133 L (137-145) mmol/L Potassium 4.7 (3.5-5.1) mmol/L Chloride 95 L (98-107) mmol/L Carbon Dioxide 26 (22-30) mmol/L Anion Gap 16.4 H (5-15) MEQ/L BUN 27 H (7-17) mg/dL Creatinine 0.88 (0.52-1.04) mg/dL Estimated GFR > 60.0 ML/MIN Glucose 150 H (74-106) mg/dL Lactic Acid (0.4-2.0) Calcium 8.9 (8.4-10.2) mg/dL Total Bilirubin < 0.10 L (0.2-1.3) mg/dL AST 17 (14-36) U/L ALT 14 (0-35) U/L Alkaline Phosphatase 45 (38-126) U/L Troponin I (0.000-0.034) ng/mL Serum Total Protein 6.2 L (6.3-8.2) g/dL Albumin 2.9 L (3.5-5.0) g/dL Amylase 57 (30-110) U/L Lipase 64 (23-300) U/L Urine Color (YELLOW) Urine Appearance (CLEAR) Urine pH (5-6) Ur Specific [place] (1.005-1.025) Urine Protein (Negative) Urine Ketones (NEGATIVE) Urine Blood (0-5) Dustin/ul Urine Nitrite (NEGATIVE) Urine Bilirubin (NEGATIVE) Urine Urobilinogen (0-1) mg/dL Ur Leukocyte Esterase (NEGATIVE) Urine WBC (Auto) (0-5) /HPF Urine RBC (Auto) (0-2) /HPF U Epithel Cells (Auto) (FEW) /HPF Urine Bacteria (Auto) (NEGATIVE) /HPF Urine Mucus (Auto) (NEGATIVE) /HPF Urine Culture Reflexed (NO) Urine Glucose (NEGATIVE) mg/dL ABO Group A Rh Factor NEGATIVE Antibody Screen NEGATIVE (NEGATIVE) Crossmatch 11/10/18 Range/Units 18:00 WBC (4.0-10.5) K/mm3 RBC (4.1-5.4) M/mm3 Hgb (12.0-16.0) gm/dl Hct (35-47) % MCV (78-100) fl MCH (26-32) pg MCHC (32-36) g/dl RDW (11.5-14.0) % Plt Count (150-450) K/mm3 MPV (6-9.5) fl Gran % (36.0-66.0) % Eos # (Auto) (0-0.5) Absolute Lymphs (auto) (1.0-4.6) Absolute Monos (auto) (0.0-1.3) Lymphocytes % (24.0-44.0) % Monocytes % (0.0-12.0) % Eosinophils % (0.00-5.0) % Basophils % (0.0-0.4) % Absolute Granulocytes (1.4-6.9) Basophils # (0-0.4) Sodium (137-145) mmol/L Potassium (3.5-5.1) mmol/L Chloride (98-107) mmol/L Carbon Dioxide (22-30) mmol/L Anion Gap (5-15) MEQ/L BUN (7-17) mg/dL Creatinine (0.52-1.04) mg/dL Estimated GFR ML/MIN Glucose (74-106) mg/dL Lactic Acid (0.4-2.0) Calcium (8.4-10.2) mg/dL Total Bilirubin (0.2-1.3) mg/dL AST (14-36) U/L ALT (0-35) U/L Alkaline Phosphatase (38-126) U/L Troponin I (0.000-0.034) ng/mL Serum Total Protein (6.3-8.2) g/dL Albumin (3.5-5.0) g/dL Amylase (30-110) U/L Lipase (23-300) U/L Urine Color (YELLOW) Urine Appearance (CLEAR) Urine pH (5-6) Ur Specific [place] (1.005-1.025) Urine Protein (Negative) Urine Ketones (NEGATIVE) Urine Blood (0-5) Dustin/ul Urine Nitrite (NEGATIVE) Urine Bilirubin (NEGATIVE) Urine Urobilinogen (0-1) mg/dL Ur Leukocyte Esterase (NEGATIVE) Urine WBC (Auto) (0-5) /HPF Urine RBC (Auto) (0-2) /HPF U Epithel Cells (Auto) (FEW) /HPF Urine Bacteria (Auto) (NEGATIVE) /HPF Urine Mucus (Auto) (NEGATIVE) /HPF Urine Culture Reflexed (NO) Urine Glucose (NEGATIVE) mg/dL ABO Group Rh Factor Antibody Screen (NEGATIVE) Crossmatch Pending - Progress Progress: improved <TYREL AG - Last Filed: 11/10/18 19:01> - Progress Discussed with : Pra[facility] Counseled pt/family regarding: lab results, diagnosis <LESLIE FARRIS - Last Filed: 11/10/18 19:43> - Progress Progress Note: 11/10/18 19:00 Patient's case will be transferred to Dr. Farris secondary to shift change. Case has been discussed with Dr. Farris (TYREL AG) 11/10/18 19:[address] portillo. i reviewed pt hx, conditon, lab results with him. he accepts pt for place in observation and transfuse 2 units prbcs (LESLIE FARRIS) <TYREL AG - Last Filed: 11/10/18 19:01> - Departure Departure Disposition: Observation Critical Care Time: Yes Critical Care Time(excluding separately billable procedures): 30-74 minutes <LESLIE FARRIS - Last Filed: 11/10/18 19:43> - Departure Clinical Impression: Symptomatic anemia, Weakness Condition: Fair Referrals: MECHE PORTILLO MD [Primary Care Provider] -
[2018-11-10 18:36] LABS: BASOPHIL % 0.3 % (0.0-0.4); Basophil (Absolute #) 0.04 (0-0.4); Eosinophil % 1.4 % (0.00-5.0); Eosinophil (Absolute #) 0.19 (0-0.5); Granulocyte Absolute (ANC) 10.29 (1.4-6.9); Granulocytes % 74.4 % (36.0-66.0); Hematocrit 22.4 % (35-47); Lymphocyte (Absolute #) 2.14 (1.0-4.6); Lymphocytes % 15.5 % (24.0-44.0); Mean Corpuscular Hemoglobin 23.3 pg (26-32); Mean Corpuscular Hgb Concent. 29.9 g/dl (32-36); Monocyte (Absolute #) 1.16 (0.0-1.3); Monocytes % 8.4 % (0.0-12.0); Platelet Count 641 K/mm3 (150-450); Red Blood Count 2.87 M/mm3 (4.1-5.4); Red Cell Distribution Width 18.7 % (11.5-14.0); White Blood Count 13.8 K/mm3 (4.0-10.5)
[2018-11-10 18:48] LABS: Hemoglobin 6.7 gm/dl (12.0-16.0)
[2018-11-10 18:55] LABS: ALBUMIN 2.9 g/dL (3.5-5.0); ALKALINE PHOSPHATASE 45 U/L (38-126); AMYLASE 57 U/L (30-110); ANION GAP 16.4 MEQ/L (5-15); BILIRUBIN,TOTAL < 0.10 mg/dL (0.2-1.3); BLOOD UREA NITROGEN 27 mg/dL (7-17); CHLORIDE 95 mmol/L (98-107); Calcium 8.9 mg/dL (8.4-10.2); Carbon Dioxide 26 mmol/L (22-30); Creatinine 1 0.88 mg/dL (0.52-1.04); Glucose 150 mg/dL (74-106); LIPASE 64 U/L (23-300); Potassium 4.7 mmol/L (3.5-5.1); SGOT/AST 17 U/L (14-36); SGPT/ALT 14 U/L (0-35); SODIUM 133 mmol/L (137-145); Total Protein 6.2 g/dL (6.3-8.2)
[2018-11-10 19:28] LABS: Appearance CLEAR (CLEAR); Bilirubin NEGATIVE (NEGATIVE); Blood NEGATIVE Ery/ul (0-5); Glucose NEGATIVE (NEGATIVE); Ketones NEGATIVE (NEGATIVE); Leukocyte Esterase NEGATIVE (NEGATIVE); Mucus SLIGHT /HPF (NEGATIVE); Nitrite NEGATIVE (NEGATIVE); Protein,Urine Dip 100 (Negative); Specific Gravity 1.016 (1.005-1.025); Urobilinogen NEGATIVE mg/dL (0-1); WBC 0-2 /HPF (0-5)
[2018-11-10 19:42] LABS: ABO TYPING A; Antibody Screen NEGATIVE (NEGATIVE); RH TYPING NEGATIVE
[2018-11-10 20:07] LABS: CROSS MATCH (PRBC) COMPATIBLE (COMPATIBLE)
[2018-11-10] MEDS ORDERED: TYLENOL 325 MG PO PRN (20:49)
[2018-11-10 22:39] LABS: Appearance CLEAR (CLEAR); Bilirubin NEGATIVE (NEGATIVE); Blood NEGATIVE Ery/ul (0-5); Glucose NEGATIVE (NEGATIVE); Ketones NEGATIVE (NEGATIVE); Leukocyte Esterase NEGATIVE (NEGATIVE); Nitrite NEGATIVE (NEGATIVE); Protein,Urine Dip 30 (Negative); Specific Gravity 1.013 (1.005-1.025); Urobilinogen NEGATIVE mg/dL (0-1)
[2018-11-10] MEDS ORDERED: ELIQUIS 2.5 MG TABLET ONE (22:51)
[2018-11-10] MEDS ORDERED: Klor Con 10 MEQ PO ONE (23:00)
[2018-11-11 02:53] LABS: Hematocrit 28.2 % (35-47); Hemoglobin 8.8 gm/dl (12.0-16.0)
[2018-11-11 05:37] LABS: BASOPHIL % 0.3 % (0.0-0.4); Basophil (Absolute #) 0.03 (0-0.4); Eosinophil % 1.9 % (0.00-5.0); Eosinophil (Absolute #) 0.21 (0-0.5); Granulocyte Absolute (ANC) 7.22 (1.4-6.9); Granulocytes % 66.4 % (36.0-66.0); Hematocrit 28.5 % (35-47); Hemoglobin 8.9 gm/dl (12.0-16.0); Lymphocyte (Absolute #) 2.12 (1.0-4.6); Lymphocytes % 19.5 % (24.0-44.0); Mean Cell Volume 80.1 fl (78-100); Mean Corpuscular Hgb Concent. 31.2 g/dl (32-36); Mean Platelet Volume 9.6 fl (6-9.5); Monocytes % 11.9 % (0.0-12.0); Platelet Count 588 K/mm3 (150-450); Red Blood Count 3.56 M/mm3 (4.1-5.4); Red Cell Distribution Width 18.6 % (11.5-14.0); White Blood Count 10.9 K/mm3 (4.0-10.5)
[2018-11-11 05:49] LABS: ANION GAP 11.2 MEQ/L (5-15); BLOOD UREA NITROGEN 21 mg/dL (7-17); CHLORIDE 102 mmol/L (98-107); Calcium 8.6 mg/dL (8.4-10.2); Carbon Dioxide 27 mmol/L (22-30); Creatinine 1 0.73 mg/dL (0.52-1.04); Glucose 134 mg/dL (74-106); NT PRO BNP 3000 pg/mL (0-900); Potassium 4.3 mmol/L (3.5-5.1); SODIUM 136 mmol/L (137-145)
[2018-11-11] MEDS ORDERED: HUMALOG MIX 75-25 VIAL SQ SCH (07:30)
[2018-11-11] MEDS ORDERED: [UNRECOGNIZED DRUG - OTHER] SQ SCH (07:30)
[2018-11-11] MEDS ORDERED: INSULIN LISPRO PROTAMIN SQ SCH (07:30)
[2018-11-11] MEDS ORDERED: LISPRO SQ SCH (07:30)
--- NOTE | 2018-11-11 08:41 | XRAY ---
Indication: Weakness. Comparison: September 05, 2007. Portable chest again hyperinflated and clear. Heart is not enlarged again with left-sided dual-lead pacemaker. Bony thorax intact again with mild osteopenia, degenerative changes, and lower cervical fusion hardware. Interval left carotid endarterectomy. Impression: Nonacute hyperinflated chest with chronic features.
[2018-11-11] MEDS ORDERED: ASCORBIC ACID PO SCH (10:00)
[2018-11-11] MEDS ORDERED: FERROUS FUMARATE PO SCH (10:00)
[2018-11-11] MEDS ORDERED: ELIQUIS 2.5 MG TABLET PO SCH (10:00)
[2018-11-11] MEDS ORDERED: [UNRECOGNIZED DRUG - OTHER] PO SCH (10:00)
[2018-11-11] MEDS ORDERED: FEOSOL 325 MG PO SCH (10:00)
[2018-11-11] MEDS ORDERED: MAG-OX 400 PO SCH (10:00)
[2018-11-11] MEDS ORDERED: NON-FORMULARY ITEM (Magnesium Oxide [Magnesium] 400 MG) PO SCH (10:00)
[2018-11-11] MEDS ORDERED: Klor Con 10 MEQ PO SCH (10:00)
[2018-11-11 11:20] VITALS: BP 118/60; PULSE 68; O2SAT 96
--- NOTE | 2018-11-11 13:04 | PCM.SSS ---
History of Present Illness - Chief Complaint Chief Complaint: weakness and lethargy History of Present Illness: is a 73 year old female came to ER with c/o weakness and lethargy. Her Hgb is 6.7 - Review of Systems Constitutional: Fatigue, Lethargy, No Fever, No Chills Eyes: No Symptoms Ears, Nose, & Throat: No Symptoms Respiratory: No Cough, No Short Of Breath Cardiac: No Chest Pain, No Edema, No Syncope Abdominal/Gastrointestinal: No Abdominal Pain, No Nausea, No Vomiting, No Diarrhea Genitourinary Symptoms: No Dysuria Musculoskeletal: No Back Pain, No Neck Pain Skin: No Rash Neurological: No Dizziness, No Focal Weakness, No Sensory Changes Psychological: No Symptoms Endocrine: No Symptoms Hematologic/Lymphatic: No Symptoms Immunological/Allergic: No Symptoms Medications & Allergies Home Medications: Home Medication List Apixaban [Eliquis] 2.5 mg PO BID 10/27/18 [History Confirmed 11/10/18] Insulin Lispro Protamin/Lispro [Humalog Mix 75-25 Kwikpen] 20 units SQ BID PRN 10/27/18 [History Confirmed 11/10/18] Magnesium Oxide [Magnesium] 400 mg PO DAILY 10/27/18 [History Confirmed 11/10/18 ] Potassium Chloride 10 Meq Tab* [Klor Con 10 MEQ] 10 meq PO BID 10/27/18 [ History Confirmed 11/10/18] Ferrous Fumarate/Ascorbic Acid [Praful-Sequels 65-25 mg Caplet] 1 each PO DAILY 30 Days #30 tablet.er 10/28/18 [Rx Confirmed 11/10/18] Allergies/Adverse Reactions: Allergies Allergy/AdvReac Type Severity Reaction Status Date / Time Bleach (Sodium Hypochlorite) Allergy Severe Verified 11/10/18 21:44 aspirin Allergy Verified 11/10/18 17:47 codeine Allergy Verified 11/10/18 17:47 methocarbamol [From Robaxin] Allergy Verified 11/10/18 17:47 morphine AdvReac Verified 11/10/18 17:47 - Past Medical History Past Medical History: Yes Neurological History: No Pertinent History ENT History: No Pertinent History Cardiac History: Arrhythmia, Coronary Artery Disease, High Cholesterol Respiratory History: No Pertinent History Endocrine Medical History: Diabetes Type II Musculoskelatal History: No Pertinent History GI Medical History: No Pertinent History History: No Pertinent History Pyscho-Social History: No Pertinent History Reproductive Disorders: No Pertinent History Comment: anemia - Female History Hx Last Menstrual Period: psot Are you now?: No - Past Surgical History Past Surgical History: Yes Neuro Surgical History: No Pertinent History Cardiac History: Pacemaker, Other Respiratory Surgery: No Pertinent History GI Surgical History: Appendectomy Genitourinary Surgical Hx: No Pertinent History Musculskeletal Surgical Hx: Other Female Surgical History: Tubal Ligation Other Surgical History: cervical and lower back surgeries - Social History Smoking Status: Current every day smoker How long have you smoked: 60 years Exposure to second hand smoke: Yes Alcohol: None Drug Use: none - Physical Exam Vital Signs: Vital Signs - 24 hr Temp Pulse Resp BP Pulse Ox 11/11/18 12:00 18 11/11/18 11:19 97.9 F 68 18 118/60 96 11/11/18 08:00 97.7 F 88 16 120/58 93 L 11/11/18 07:48 15 11/11/18 07:22 97 11/11/18 04:00 98.9 F 86 15 130/59 96 11/11/18 03:07 19 11/11/18 00:00 98.7 F 95 H 18 130/62 92 L 11/10/18 22:55 103 H 20 93 L 11/10/18 21:59 99.6 F 108 H 20 131/60 94 L 11/10/18 19:27 18 131/59 96 11/10/18 19:01 96 11/10/18 18:39 101 H 134/61 95 11/10/18 17:39 100.3 F 105 H 18 135/66 96 General Appearance: no apparent distress, alert Neurologic Exam: alert, oriented x 3, cooperative, normal mood/affect, nml cerebellar function, nml station & gait, sensation nml, No motor deficits Eye Exam: PERRL/EOMI, eyes nml inspection Ears, Nose, Throat Exam: normal ENT inspection, TMs normal, pharynx normal, moist mucous membranes Neck Exam: normal inspection, non-tender, supple, full range of motion Respiratory Exam: normal breath sounds, lungs clear, No respiratory distress Cardiovascular Exam: regular rate/rhythm, normal heart sounds, normal peripheral pulses Gastrointestinal/Abdomen Exam: soft, normal bowel sounds, No tenderness, No mass Back Exam: normal inspection, normal range of motion, No CVA tenderness, No vertebral tenderness Extremity Exam: normal inspection, normal range of motion, pelvis stable Skin Exam: normal color, warm, dry, No rash Lymphatic Exam: No adenopathy Results - Labs Lab/Micro Results: Accuchecks Date 11/11/18 Date 11/11/18 Time 12:40 Time 08:06 Accucheck Value: 241 Accucheck Value: 194 Lab Results-Last 24 Hours 11/10/18 11/10/18 11/10/18 Range/Units 18:00 18:00 18:35 WBC 13.8 H (4.0-10.5) K/mm3 RBC 2.87 L (4.1-5.4) M/mm3 Hgb 6.7 L* (12.0-16.0) gm/dl Hct 22.4 L (35-47) % MCV 78.0 (78-100) fl MCH 23.3 L (26-32) pg MCHC 29.9 L (32-36) g/dl RDW 18.7 H (11.5-14.0) % Plt Count 641 H (150-450) K/mm3 MPV 9.0 (6-9.5) fl Gran % 74.4 H (36.0-66.0) % Eos # (Auto) 0.19 (0-0.5) Absolute Lymphs (auto) 2.14 (1.0-4.6) Absolute Monos (auto) 1.16 (0.0-1.3) Lymphocytes % 15.5 L (24.0-44.0) % Monocytes % 8.4 (0.0-12.0) % Eosinophils % 1.4 (0.00-5.0) % Basophils % 0.3 (0.0-0.4) % Absolute Granulocytes 10.29 H (1.4-6.9) Basophils # 0.04 (0-0.4) Sodium (137-145) mmol/L Potassium (3.5-5.1) mmol/L Chloride (98-107) mmol/L Carbon Dioxide (22-30) mmol/L Anion Gap (5-15) MEQ/L BUN (7-17) mg/dL Creatinine (0.52-1.04) mg/dL Estimated GFR ML/MIN Glucose (74-106) mg/dL Lactic Acid (0.4-2.0) Calcium (8.4-10.2) mg/dL Total Bilirubin (0.2-1.3) mg/dL AST (14-36) U/L ALT (0-35) U/L Alkaline Phosphatase (38-126) U/L Troponin I (0.000-0.034) ng/mL NT-Pro-B Natriuret Pep (0-900) pg/mL Serum Total Protein (6.3-8.2) g/dL Albumin (3.5-5.0) g/dL Amylase (30-110) U/L Lipase (23-300) U/L Urine Color (YELLOW) Urine Appearance (CLEAR) Urine pH (5-6) Ur Specific [place] (1.005-1.025) Urine Protein (Negative) Urine Ketones (NEGATIVE) Urine Blood (0-5) Dustin/ul Urine Nitrite (NEGATIVE) Urine Bilirubin (NEGATIVE) Urine Urobilinogen (0-1) mg/dL Ur Leukocyte Esterase (NEGATIVE) Urine WBC (Auto) (0-5) /HPF Urine RBC (Auto) (0-2) /HPF U Epithel Cells (Auto) (FEW) /HPF Urine Bacteria (Auto) (NEGATIVE) /HPF Urine Mucus (Auto) (NEGATIVE) /HPF Urine Culture Reflexed (NO) Urine Glucose (NEGATIVE) mg/dL ABO Group Rh Factor Antibody Screen (NEGATIVE) Crossmatch COMPATIBLE COMPATIBLE (COMPATIBLE) 11/10/18 11/10/18 11/10/18 Range/Units 18:35 18:35 18:35 WBC (4.0-10.5) K/mm3 RBC (4.1-5.4) M/mm3 Hgb (12.0-16.0) gm/dl Hct (35-47) % MCV (78-100) fl MCH (26-32) pg MCHC (32-36) g/dl RDW (11.5-14.0) % Plt Count (150-450) K/mm3 MPV (6-9.5) fl Gran % (36.0-66.0) % Eos # (Auto) (0-0.5) Absolute Lymphs (auto) (1.0-4.6) Absolute Monos (auto) (0.0-1.3) Lymphocytes % (24.0-44.0) % Monocytes % (0.0-12.0) % Eosinophils % (0.00-5.0) % Basophils % (0.0-0.4) % Absolute Granulocytes (1.4-6.9) Basophils # (0-0.4) Sodium 133 L (137-145) mmol/L Potassium 4.7 (3.5-5.1) mmol/L Chloride 95 L (98-107) mmol/L Carbon Dioxide 26 (22-30) mmol/L Anion Gap 16.4 H (5-15) MEQ/L BUN 27 H (7-17) mg/dL Creatinine 0.88 (0.52-1.04) mg/dL Estimated GFR > 60.0 ML/MIN Glucose 150 H (74-106) mg/dL Lactic Acid (0.4-2.0) Calcium 8.9 (8.4-10.2) mg/dL Total Bilirubin < 0.10 L (0.2-1.3) mg/dL AST 17 (14-36) U/L ALT 14 (0-35) U/L Alkaline Phosphatase 45 (38-126) U/L Troponin I < 0.012 (0.000-0.034) ng/mL NT-Pro-B Natriuret Pep (0-900) pg/mL Serum Total Protein 6.2 L (6.3-8.2) g/dL Albumin 2.9 L (3.5-5.0) g/dL Amylase 57 (30-110) U/L Lipase 64 (23-300) U/L Urine Color (YELLOW) Urine Appearance (CLEAR) Urine pH (5-6) Ur Specific [place] (1.005-1.025) Urine Protein (Negative) Urine Ketones (NEGATIVE) Urine Blood (0-5) Dustin/ul Urine Nitrite (NEGATIVE) Urine Bilirubin (NEGATIVE) Urine Urobilinogen (0-1) mg/dL Ur Leukocyte Esterase (NEGATIVE) Urine WBC (Auto) (0-5) /HPF Urine RBC (Auto) (0-2) /HPF U Epithel Cells (Auto) (FEW) /HPF Urine Bacteria (Auto) (NEGATIVE) /HPF Urine Mucus (Auto) (NEGATIVE) /HPF Urine Culture Reflexed (NO) Urine Glucose (NEGATIVE) mg/dL ABO Group A Rh Factor NEGATIVE Antibody Screen NEGATIVE (NEGATIVE) Crossmatch (COMPATIBLE) 11/10/18 11/10/18 11/10/18 Range/Units 18:37 18:50 21:00 WBC (4.0-10.5) K/mm3 RBC (4.1-5.4) M/mm3 Hgb (12.0-16.0) gm/dl Hct (35-47) % MCV (78-100) fl MCH (26-32) pg MCHC (32-36) g/dl RDW (11.5-14.0) % Plt Count (150-450) K/mm3 MPV (6-9.5) fl Gran % (36.0-66.0) % Eos # (Auto) (0-0.5) Absolute Lymphs (auto) (1.0-4.6) Absolute Monos (auto) (0.0-1.3) Lymphocytes % (24.0-44.0) % Monocytes % (0.0-12.0) % Eosinophils % (0.00-5.0) % Basophils % (0.0-0.4) % Absolute Granulocytes (1.4-6.9) Basophils # (0-0.4) Sodium (137-145) mmol/L Potassium (3.5-5.1) mmol/L Chloride (98-107) mmol/L Carbon Dioxide (22-30) mmol/L Anion Gap (5-15) MEQ/L BUN (7-17) mg/dL Creatinine (0.52-1.04) mg/dL Estimated GFR ML/MIN Glucose (74-106) mg/dL Lactic Acid 1.0 (0.4-2.0) Calcium (8.4-10.2) mg/dL Total Bilirubin (0.2-1.3) mg/dL AST (14-36) U/L ALT (0-35) U/L Alkaline Phosphatase (38-126) U/L Troponin I < 0.012 (0.000-0.034) ng/mL NT-Pro-B Natriuret Pep (0-900) pg/mL Serum Total Protein (6.3-8.2) g/dL Albumin (3.5-5.0) g/dL Amylase (30-110) U/L Lipase (23-300) U/L Urine Color YELLOW (YELLOW) Urine Appearance CLEAR (CLEAR) Urine pH 6.0 (5-6) Ur Specific [place] 1.016 (1.005-1.025) Urine Protein 100 (Negative) Urine Ketones NEGATIVE (NEGATIVE) Urine Blood NEGATIVE (0-5) Dustin/ul Urine Nitrite NEGATIVE (NEGATIVE) Urine Bilirubin NEGATIVE (NEGATIVE) Urine Urobilinogen NEGATIVE (0-1) mg/dL Ur Leukocyte Esterase NEGATIVE (NEGATIVE) Urine WBC (Auto) 0-2 (0-5) /HPF Urine RBC (Auto) NONE (0-2) /HPF U Epithel Cells (Auto) NONE (FEW) /HPF Urine Bacteria (Auto) NONE (NEGATIVE) /HPF Urine Mucus (Auto) SLIGHT (NEGATIVE) /HPF Urine Culture Reflexed NO (NO) Urine Glucose NEGATIVE (NEGATIVE) mg/dL ABO Group Rh Factor Antibody Screen (NEGATIVE) Crossmatch (COMPATIBLE) 11/10/18 11/11/18 11/11/18 Range/Units 22:20 00:40 02:49 WBC (4.0-10.5) K/mm3 RBC (4.1-5.4) M/mm3 Hgb (12.0-16.0) gm/dl Hct (35-47) % MCV (78-100) fl MCH (26-32) pg MCHC (32-36) g/dl RDW (11.5-14.0) % Plt Count (150-450) K/mm3 MPV (6-9.5) fl Gran % (36.0-66.0) % Eos # (Auto) (0-0.5) Absolute Lymphs (auto) (1.0-4.6) Absolute Monos (auto) (0.0-1.3) Lymphocytes % (24.0-44.0) % Monocytes % (0.0-12.0) % Eosinophils % (0.00-5.0) % Basophils % (0.0-0.4) % Absolute Granulocytes (1.4-6.9) Basophils # (0-0.4) Sodium (137-145) mmol/L Potassium (3.5-5.1) mmol/L Chloride (98-107) mmol/L Carbon Dioxide (22-30) mmol/L Anion Gap (5-15) MEQ/L BUN (7-17) mg/dL Creatinine (0.52-1.04) mg/dL Estimated GFR ML/MIN Glucose (74-106) mg/dL Lactic Acid (0.4-2.0) Calcium (8.4-10.2) mg/dL Total Bilirubin (0.2-1.3) mg/dL AST (14-36) U/L ALT (0-35) U/L Alkaline Phosphatase (38-126) U/L Troponin I < 0.012 < 0.012 (0.000-0.034) ng/mL NT-Pro-B Natriuret Pep (0-900) pg/mL Serum Total Protein (6.3-8.2) g/dL Albumin (3.5-5.0) g/dL Amylase (30-110) U/L Lipase (23-300) U/L Urine Color YELLOW (YELLOW) Urine Appearance CLEAR (CLEAR) Urine pH 6.0 (5-6) Ur Specific [place] 1.013 (1.005-1.025) Urine Protein 30 (Negative) Urine Ketones NEGATIVE (NEGATIVE) Urine Blood NEGATIVE (0-5) Dustin/ul Urine Nitrite NEGATIVE (NEGATIVE) Urine Bilirubin NEGATIVE (NEGATIVE) Urine Urobilinogen NEGATIVE (0-1) mg/dL Ur Leukocyte Esterase NEGATIVE (NEGATIVE) Urine WBC (Auto) NONE (0-5) /HPF Urine RBC (Auto) NONE (0-2) /HPF U Epithel Cells (Auto) NONE (FEW) /HPF Urine Bacteria (Auto) NONE (NEGATIVE) /HPF Urine Mucus (Auto) (NEGATIVE) /HPF Urine Culture Reflexed (NO) Urine Glucose NEGATIVE (NEGATIVE) mg/dL ABO Group Rh Factor Antibody Screen (NEGATIVE) Crossmatch (COMPATIBLE) 11/11/18 11/11/18 11/11/18 Range/Units 02:49 02:49 02:49 WBC 10.9 H (4.0-10.5) K/mm3 RBC 3.56 L (4.1-5.4) M/mm3 Hgb 8.9 L D 8.8 L (12.0-16.0) gm/dl Hct 28.5 L 28.2 L (35-47) % MCV 80.1 (78-100) fl MCH 25.0 L (26-32) pg MCHC 31.2 L (32-36) g/dl RDW 18.6 H (11.5-14.0) % Plt Count 588 H (150-450) K/mm3 MPV 9.6 H (6-9.5) fl Gran % 66.4 H (36.0-66.0) % Eos # (Auto) 0.21 (0-0.5) Absolute Lymphs (auto) 2.12 (1.0-4.6) Absolute Monos (auto) 1.30 (0.0-1.3) Lymphocytes % 19.5 L (24.0-44.0) % Monocytes % 11.9 (0.0-12.0) % Eosinophils % 1.9 (0.00-5.0) % Basophils % 0.3 (0.0-0.4) % Absolute Granulocytes 7.22 H (1.4-6.9) Basophils # 0.03 (0-0.4) Sodium 136 L (137-145) mmol/L Potassium 4.3 (3.5-5.1) mmol/L Chloride 102 (98-107) mmol/L Carbon Dioxide 27 (22-30) mmol/L Anion Gap 11.2 (5-15) MEQ/L BUN 21 H (7-17) mg/dL Creatinine 0.73 (0.52-1.04) mg/dL Estimated GFR > 60.0 ML/MIN Glucose 134 H (74-106) mg/dL Lactic Acid (0.4-2.0) Calcium 8.6 (8.4-10.2) mg/dL Total Bilirubin (0.2-1.3) mg/dL AST (14-36) U/L ALT (0-35) U/L Alkaline Phosphatase (38-126) U/L Troponin I (0.000-0.034) ng/mL NT-Pro-B Natriuret Pep 3000 H (0-900) pg/mL Serum Total Protein (6.3-8.2) g/dL Albumin (3.5-5.0) g/dL Amylase (30-110) U/L Lipase (23-300) U/L Urine Color (YELLOW) Urine Appearance (CLEAR) Urine pH (5-6) Ur Specific [place] (1.005-1.025) Urine Protein (Negative) Urine Ketones (NEGATIVE) Urine Blood (0-5) Dustin/ul Urine Nitrite (NEGATIVE) Urine Bilirubin (NEGATIVE) Urine Urobilinogen (0-1) mg/dL Ur Leukocyte Esterase (NEGATIVE) Urine WBC (Auto) (0-5) /HPF Urine RBC (Auto) (0-2) /HPF U Epithel Cells (Auto) (FEW) /HPF Urine Bacteria (Auto) (NEGATIVE) /HPF Urine Mucus (Auto) (NEGATIVE) /HPF Urine Culture Reflexed (NO) Urine Glucose (NEGATIVE) mg/dL ABO Group Rh Factor Antibody Screen (NEGATIVE) Crossmatch (COMPATIBLE) 11/11/18 Range/Units 05:55 WBC (4.0-10.5) K/mm3 RBC (4.1-5.4) M/mm3 Hgb (12.0-16.0) gm/dl Hct (35-47) % MCV (78-100) fl MCH (26-32) pg MCHC (32-36) g/dl RDW (11.5-14.0) % Plt Count (150-450) K/mm3 MPV (6-9.5) fl Gran % (36.0-66.0) % Eos # (Auto) (0-0.5) Absolute Lymphs (auto) (1.0-4.6) Absolute Monos (auto) (0.0-1.3) Lymphocytes % (24.0-44.0) % Monocytes % (0.0-12.0) % Eosinophils % (0.00-5.0) % Basophils % (0.0-0.4) % Absolute Granulocytes (1.4-6.9) Basophils # (0-0.4) Sodium (137-145) mmol/L Potassium (3.5-5.1) mmol/L Chloride (98-107) mmol/L Carbon Dioxide (22-30) mmol/L Anion Gap (5-15) MEQ/L BUN (7-17) mg/dL Creatinine (0.52-1.04) mg/dL Estimated GFR ML/MIN Glucose (74-106) mg/dL Lactic Acid (0.4-2.0) Calcium (8.4-10.2) mg/dL Total Bilirubin (0.2-1.3) mg/dL AST (14-36) U/L ALT (0-35) U/L Alkaline Phosphatase (38-126) U/L Troponin I < 0.012 (0.000-0.034) ng/mL NT-Pro-B Natriuret Pep (0-900) pg/mL Serum Total Protein (6.3-8.2) g/dL Albumin (3.5-5.0) g/dL Amylase (30-110) U/L Lipase (23-300) U/L Urine Color (YELLOW) Urine Appearance (CLEAR) Urine pH (5-6) Ur Specific [place] (1.005-1.025) Urine Protein (Negative) Urine Ketones (NEGATIVE) Urine Blood (0-5) Dustin/ul Urine Nitrite (NEGATIVE) Urine Bilirubin (NEGATIVE) Urine Urobilinogen (0-1) mg/dL Ur Leukocyte Esterase (NEGATIVE) Urine WBC (Auto) (0-5) /HPF Urine RBC (Auto) (0-2) /HPF U Epithel Cells (Auto) (FEW) /HPF Urine Bacteria (Auto) (NEGATIVE) /HPF Urine Mucus (Auto) (NEGATIVE) /HPF Urine Culture Reflexed (NO) Urine Glucose (NEGATIVE) mg/dL ABO Group Rh Factor Antibody Screen (NEGATIVE) Crossmatch (COMPATIBLE) Accuchecks Date 11/11/18 Date 11/11/18 Time 12:40 Time 08:06 Accucheck Value: 241 Accucheck Value: 194 - Radiology Impressions Radiology Exams & Impressions: Radiology Procedures Category Date Time Status CHEST 1 VIEW (PORTABLE) Stat Exams 11/10/18 17:57 Completed - Other Procedures and Tests Respiratory Therapy 11/10/18 20:49 Oxygen Nasal Cannula 2 lpm 11/10/18 22:55 Respiratory Therapy Assessment DAILY Assessment/Plan (1) Symptomatic anemia Current Visit: Yes Status: Acute Assessment & Plan: Patient has 2 units of PRBC. Hgb 8.8. doing better will discharge home. Code(s): D64.9 - ANEMIA, UNSPECIFIED Hospital Summary - Vitals & Intake/Output Vital Signs: Vital Signs Temperature 97.9 F 11/11/18 11:19 Pulse Rate 68 11/11/18 11:19 Respiratory Rate 18 11/11/18 12:00 Blood Pressure 118/60 11/11/18 11:19 O2 Sat by Pulse Oximetry 96 11/11/18 11:19 Intake & Output: Intake & Output 05/0111/10/18 11/11/18 11/12/18 11:59 11:59 11:59 11:59 Intake Total 912 Output Total 1450 Balance -538 Weight 58.1 kg - Lab Result Diagrams: 11/11/18 02:49 11/11/18 02:49 Lab Results-Last 24 Hrs: Accuchecks Date 11/11/18 Date 11/11/18 Time 12:40 Time 08:06 Accucheck Value: 241 Accucheck Value: 194 Lab Results-Last 24 Hours 11/10/18 11/10/18 11/10/18 Range/Units 18:00 18:00 18:35 WBC 13.8 H (4.0-10.5) K/mm3 RBC 2.87 L (4.1-5.4) M/mm3 Hgb 6.7 L* (12.0-16.0) gm/dl Hct 22.4 L (35-47) % MCV 78.0 (78-100) fl MCH 23.3 L (26-32) pg MCHC 29.9 L (32-36) g/dl RDW 18.7 H (11.5-14.0) % Plt Count 641 H (150-450) K/mm3 MPV 9.0 (6-9.5) fl Gran % 74.4 H (36.0-66.0) % Eos # (Auto) 0.19 (0-0.5) Absolute Lymphs (auto) 2.14 (1.0-4.6) Absolute Monos (auto) 1.16 (0.0-1.3) Lymphocytes % 15.5 L (24.0-44.0) % Monocytes % 8.4 (0.0-12.0) % Eosinophils % 1.4 (0.00-5.0) % Basophils % 0.3 (0.0-0.4) % Absolute Granulocytes 10.29 H (1.4-6.9) Basophils # 0.04 (0-0.4) Sodium (137-145) mmol/L Potassium (3.5-5.1) mmol/L Chloride (98-107) mmol/L Carbon Dioxide (22-30) mmol/L Anion Gap (5-15) MEQ/L BUN (7-17) mg/dL Creatinine (0.52-1.04) mg/dL Estimated GFR ML/MIN Glucose (74-106) mg/dL Lactic Acid (0.4-2.0) Calcium (8.4-10.2) mg/dL Total Bilirubin (0.2-1.3) mg/dL AST (14-36) U/L ALT (0-35) U/L Alkaline Phosphatase (38-126) U/L Troponin I (0.000-0.034) ng/mL NT-Pro-B Natriuret Pep (0-900) pg/mL Serum Total Protein (6.3-8.2) g/dL Albumin (3.5-5.0) g/dL Amylase (30-110) U/L Lipase (23-300) U/L Urine Color (YELLOW) Urine Appearance (CLEAR) Urine pH (5-6) Ur Specific [place] (1.005-1.025) Urine Protein (Negative) Urine Ketones (NEGATIVE) Urine Blood (0-5) Dustin/ul Urine Nitrite (NEGATIVE) Urine Bilirubin (NEGATIVE) Urine Urobilinogen (0-1) mg/dL Ur Leukocyte Esterase (NEGATIVE) Urine WBC (Auto) (0-5) /HPF Urine RBC (Auto) (0-2) /HPF U Epithel Cells (Auto) (FEW) /HPF Urine Bacteria (Auto) (NEGATIVE) /HPF Urine Mucus (Auto) (NEGATIVE) /HPF Urine Culture Reflexed (NO) Urine Glucose (NEGATIVE) mg/dL ABO Group Rh Factor Antibody Screen (NEGATIVE) Crossmatch COMPATIBLE COMPATIBLE (COMPATIBLE) 11/10/18 11/10/18 11/10/18 Range/Units 18:35 18:35 18:35 WBC (4.0-10.5) K/mm3 RBC (4.1-5.4) M/mm3 Hgb (12.0-16.0) gm/dl Hct (35-47) % MCV (78-100) fl MCH (26-32) pg MCHC (32-36) g/dl RDW (11.5-14.0) % Plt Count (150-450) K/mm3 MPV (6-9.5) fl Gran % (36.0-66.0) % Eos # (Auto) (0-0.5) Absolute Lymphs (auto) (1.0-4.6) Absolute Monos (auto) (0.0-1.3) Lymphocytes % (24.0-44.0) % Monocytes % (0.0-12.0) % Eosinophils % (0.00-5.0) % Basophils % (0.0-0.4) % Absolute Granulocytes (1.4-6.9) Basophils # (0-0.4) Sodium 133 L (137-145) mmol/L Potassium 4.7 (3.5-5.1) mmol/L Chloride 95 L (98-107) mmol/L Carbon Dioxide 26 (22-30) mmol/L Anion Gap 16.4 H (5-15) MEQ/L BUN 27 H (7-17) mg/dL Creatinine 0.88 (0.52-1.04) mg/dL Estimated GFR > 60.0 ML/MIN Glucose 150 H (74-106) mg/dL Lactic Acid (0.4-2.0) Calcium 8.9 (8.4-10.2) mg/dL Total Bilirubin < 0.10 L (0.2-1.3) mg/dL AST 17 (14-36) U/L ALT 14 (0-35) U/L Alkaline Phosphatase 45 (38-126) U/L Troponin I < 0.012 (0.000-0.034) ng/mL NT-Pro-B Natriuret Pep (0-900) pg/mL Serum Total Protein 6.2 L (6.3-8.2) g/dL Albumin 2.9 L (3.5-5.0) g/dL Amylase 57 (30-110) U/L Lipase 64 (23-300) U/L Urine Color (YELLOW) Urine Appearance (CLEAR) Urine pH (5-6) Ur Specific [place] (1.005-1.025) Urine Protein (Negative) Urine Ketones (NEGATIVE) Urine Blood (0-5) Dustin/ul Urine Nitrite (NEGATIVE) Urine Bilirubin (NEGATIVE) Urine Urobilinogen (0-1) mg/dL Ur Leukocyte Esterase (NEGATIVE) Urine WBC (Auto) (0-5) /HPF Urine RBC (Auto) (0-2) /HPF U Epithel Cells (Auto) (FEW) /HPF Urine Bacteria (Auto) (NEGATIVE) /HPF Urine Mucus (Auto) (NEGATIVE) /HPF Urine Culture Reflexed (NO) Urine Glucose (NEGATIVE) mg/dL ABO Group A Rh Factor NEGATIVE Antibody Screen NEGATIVE (NEGATIVE) Crossmatch (COMPATIBLE) 11/10/18 11/10/18 11/10/18 Range/Units 18:37 18:50 21:00 WBC (4.0-10.5) K/mm3 RBC (4.1-5.4) M/mm3 Hgb (12.0-16.0) gm/dl Hct (35-47) % MCV (78-100) fl MCH (26-32) pg MCHC (32-36) g/dl RDW (11.5-14.0) % Plt Count (150-450) K/mm3 MPV (6-9.5) fl Gran % (36.0-66.0) % Eos # (Auto) (0-0.5) Absolute Lymphs (auto) (1.0-4.6) Absolute Monos (auto) (0.0-1.3) Lymphocytes % (24.0-44.0) % Monocytes % (0.0-12.0) % Eosinophils % (0.00-5.0) % Basophils % (0.0-0.4) % Absolute Granulocytes (1.4-6.9) Basophils # (0-0.4) Sodium (137-145) mmol/L Potassium (3.5-5.1) mmol/L Chloride (98-107) mmol/L Carbon Dioxide (22-30) mmol/L Anion Gap (5-15) MEQ/L BUN (7-17) mg/dL Creatinine (0.52-1.04) mg/dL Estimated GFR ML/MIN Glucose (74-106) mg/dL Lactic Acid 1.0 (0.4-2.0) Calcium (8.4-10.2) mg/dL Total Bilirubin (0.2-1.3) mg/dL AST (14-36) U/L ALT (0-35) U/L Alkaline Phosphatase (38-126) U/L Troponin I < 0.012 (0.000-0.034) ng/mL NT-Pro-B Natriuret Pep (0-900) pg/mL Serum Total Protein (6.3-8.2) g/dL Albumin (3.5-5.0) g/dL Amylase (30-110) U/L Lipase (23-300) U/L Urine Color YELLOW (YELLOW) Urine Appearance CLEAR (CLEAR) Urine pH 6.0 (5-6) Ur Specific [place] 1.016 (1.005-1.025) Urine Protein 100 (Negative) Urine Ketones NEGATIVE (NEGATIVE) Urine Blood NEGATIVE (0-5) Dustin/ul Urine Nitrite NEGATIVE (NEGATIVE) Urine Bilirubin NEGATIVE (NEGATIVE) Urine Urobilinogen NEGATIVE (0-1) mg/dL Ur Leukocyte Esterase NEGATIVE (NEGATIVE) Urine WBC (Auto) 0-2 (0-5) /HPF Urine RBC (Auto) NONE (0-2) /HPF U Epithel Cells (Auto) NONE (FEW) /HPF Urine Bacteria (Auto) NONE (NEGATIVE) /HPF Urine Mucus (Auto) SLIGHT (NEGATIVE) /HPF Urine Culture Reflexed NO (NO) Urine Glucose NEGATIVE (NEGATIVE) mg/dL ABO Group Rh Factor Antibody Screen (NEGATIVE) Crossmatch (COMPATIBLE) 11/10/18 11/11/18 11/11/18 Range/Units 22:20 00:40 02:49 WBC (4.0-10.5) K/mm3 RBC (4.1-5.4) M/mm3 Hgb (12.0-16.0) gm/dl Hct (35-47) % MCV (78-100) fl MCH (26-32) pg MCHC (32-36) g/dl RDW (11.5-14.0) % Plt Count (150-450) K/mm3 MPV (6-9.5) fl Gran % (36.0-66.0) % Eos # (Auto) (0-0.5) Absolute Lymphs (auto) (1.0-4.6) Absolute Monos (auto) (0.0-1.3) Lymphocytes % (24.0-44.0) % Monocytes % (0.0-12.0) % Eosinophils % (0.00-5.0) % Basophils % (0.0-0.4) % Absolute Granulocytes (1.4-6.9) Basophils # (0-0.4) Sodium (137-145) mmol/L Potassium (3.5-5.1) mmol/L Chloride (98-107) mmol/L Carbon Dioxide (22-30) mmol/L Anion Gap (5-15) MEQ/L BUN (7-17) mg/dL Creatinine (0.52-1.04) mg/dL Estimated GFR ML/MIN Glucose (74-106) mg/dL Lactic Acid (0.4-2.0) Calcium (8.4-10.2) mg/dL Total Bilirubin (0.2-1.3) mg/dL AST (14-36) U/L ALT (0-35) U/L Alkaline Phosphatase (38-126) U/L Troponin I < 0.012 < 0.012 (0.000-0.034) ng/mL NT-Pro-B Natriuret Pep (0-900) pg/mL Serum Total Protein (6.3-8.2) g/dL Albumin (3.5-5.0) g/dL Amylase (30-110) U/L Lipase (23-300) U/L Urine Color YELLOW (YELLOW) Urine Appearance CLEAR (CLEAR) Urine pH 6.0 (5-6) Ur Specific [place] 1.013 (1.005-1.025) Urine Protein 30 (Negative) Urine Ketones NEGATIVE (NEGATIVE) Urine Blood NEGATIVE (0-5) Dustin/ul Urine Nitrite NEGATIVE (NEGATIVE) Urine Bilirubin NEGATIVE (NEGATIVE) Urine Urobilinogen NEGATIVE (0-1) mg/dL Ur Leukocyte Esterase NEGATIVE (NEGATIVE) Urine WBC (Auto) NONE (0-5) /HPF Urine RBC (Auto) NONE (0-2) /HPF U Epithel Cells (Auto) NONE (FEW) /HPF Urine Bacteria (Auto) NONE (NEGATIVE) /HPF Urine Mucus (Auto) (NEGATIVE) /HPF Urine Culture Reflexed (NO) Urine Glucose NEGATIVE (NEGATIVE) mg/dL ABO Group Rh Factor Antibody Screen (NEGATIVE) Crossmatch (COMPATIBLE) 11/11/18 11/11/18 11/11/18 Range/Units 02:49 02:49 02:49 WBC 10.9 H (4.0-10.5) K/mm3 RBC 3.56 L (4.1-5.4) M/mm3 Hgb 8.9 L D 8.8 L (12.0-16.0) gm/dl Hct 28.5 L 28.2 L (35-47) % MCV 80.1 (78-100) fl MCH 25.0 L (26-32) pg MCHC 31.2 L (32-36) g/dl RDW 18.6 H (11.5-14.0) % Plt Count 588 H (150-450) K/mm3 MPV 9.6 H (6-9.5) fl Gran % 66.4 H (36.0-66.0) % Eos # (Auto) 0.21 (0-0.5) Absolute Lymphs (auto) 2.12 (1.0-4.6) Absolute Monos (auto) 1.30 (0.0-1.3) Lymphocytes % 19.5 L (24.0-44.0) % Monocytes % 11.9 (0.0-12.0) % Eosinophils % 1.9 (0.00-5.0) % Basophils % 0.3 (0.0-0.4) % Absolute Granulocytes 7.22 H (1.4-6.9) Basophils # 0.03 (0-0.4) Sodium 136 L (137-145) mmol/L Potassium 4.3 (3.5-5.1) mmol/L Chloride 102 (98-107) mmol/L Carbon Dioxide 27 (22-30) mmol/L Anion Gap 11.2 (5-15) MEQ/L BUN 21 H (7-17) mg/dL Creatinine 0.73 (0.52-1.04) mg/dL Estimated GFR > 60.0 ML/MIN Glucose 134 H (74-106) mg/dL Lactic Acid (0.4-2.0) Calcium 8.6 (8.4-10.2) mg/dL Total Bilirubin (0.2-1.3) mg/dL AST (14-36) U/L ALT (0-35) U/L Alkaline Phosphatase (38-126) U/L Troponin I (0.000-0.034) ng/mL NT-Pro-B Natriuret Pep 3000 H (0-900) pg/mL Serum Total Protein (6.3-8.2) g/dL Albumin (3.5-5.0) g/dL Amylase (30-110) U/L Lipase (23-300) U/L Urine Color (YELLOW) Urine Appearance (CLEAR) Urine pH (5-6) Ur Specific [place] (1.005-1.025) Urine Protein (Negative) Urine Ketones (NEGATIVE) Urine Blood (0-5) Dustin/ul Urine Nitrite (NEGATIVE) Urine Bilirubin (NEGATIVE) Urine Urobilinogen (0-1) mg/dL Ur Leukocyte Esterase (NEGATIVE) Urine WBC (Auto) (0-5) /HPF Urine RBC (Auto) (0-2) /HPF U Epithel Cells (Auto) (FEW) /HPF Urine Bacteria (Auto) (NEGATIVE) /HPF Urine Mucus (Auto) (NEGATIVE) /HPF Urine Culture Reflexed (NO) Urine Glucose (NEGATIVE) mg/dL ABO Group Rh Factor Antibody Screen (NEGATIVE) Crossmatch (COMPATIBLE) 11/11/18 Range/Units 05:55 WBC (4.0-10.5) K/mm3 RBC (4.1-5.4) M/mm3 Hgb (12.0-16.0) gm/dl Hct (35-47) % MCV (78-100) fl MCH (26-32) pg MCHC (32-36) g/dl RDW (11.5-14.0) % Plt Count (150-450) K/mm3 MPV (6-9.5) fl Gran % (36.0-66.0) % Eos # (Auto) (0-0.5) Absolute Lymphs (auto) (1.0-4.6) Absolute Monos (auto) (0.0-1.3) Lymphocytes % (24.0-44.0) % Monocytes % (0.0-12.0) % Eosinophils % (0.00-5.0) % Basophils % (0.0-0.4) % Absolute Granulocytes (1.4-6.9) Basophils # (0-0.4) Sodium (137-145) mmol/L Potassium (3.5-5.1) mmol/L Chloride (98-107) mmol/L Carbon Dioxide (22-30) mmol/L Anion Gap (5-15) MEQ/L BUN (7-17) mg/dL Creatinine (0.52-1.04) mg/dL Estimated GFR ML/MIN Glucose (74-106) mg/dL Lactic Acid (0.4-2.0) Calcium (8.4-10.2) mg/dL Total Bilirubin (0.2-1.3) mg/dL AST (14-36) U/L ALT (0-35) U/L Alkaline Phosphatase (38-126) U/L Troponin I < 0.012 (0.000-0.034) ng/mL NT-Pro-B Natriuret Pep (0-900) pg/mL Serum Total Protein (6.3-8.2) g/dL Albumin (3.5-5.0) g/dL Amylase (30-110) U/L Lipase (23-300) U/L Urine Color (YELLOW) Urine Appearance (CLEAR) Urine pH (5-6) Ur Specific [place] (1.005-1.025) Urine Protein (Negative) Urine Ketones (NEGATIVE) Urine Blood (0-5) Dustin/ul Urine Nitrite (NEGATIVE) Urine Bilirubin (NEGATIVE) Urine Urobilinogen (0-1) mg/dL Ur Leukocyte Esterase (NEGATIVE) Urine WBC (Auto) (0-5) /HPF Urine RBC (Auto) (0-2) /HPF U Epithel Cells (Auto) (FEW) /HPF Urine Bacteria (Auto) (NEGATIVE) /HPF Urine Mucus (Auto) (NEGATIVE) /HPF Urine Culture Reflexed (NO) Urine Glucose (NEGATIVE) mg/dL ABO Group Rh Factor Antibody Screen (NEGATIVE) Crossmatch (COMPATIBLE) Micro Results-Entire Visit: Accuchecks Date 11/11/18 Date 11/11/18 Time 12:40 Time 08:06 Accucheck Value: 241 Accucheck Value: 194 - Radiology Exams Ordered Rad Exams-Entire Visit: Radiology Procedures Category Date Time Status CHEST 1 VIEW (PORTABLE) Stat Exams 11/10/18 17:57 Completed - Procedures and Test Procedures and Tests throughout Hospitalization: Therapy Orders & Screens 11/10/18 20:49 Oxygen Nasal Cannula 2 lpm Comment: 11/10/18 22:20 OT Screen per Nursing Assess ONCE Comment: Protocol Order Physician Instructions: Greater than 3 points order OT Admission Screening Reason For Exam: Triggered on Admission Diagnosis: symptomatic anemia Open Wound/Cellutlitis/Pressure Ulcers: No Acute Fx/ORIF/Change in wt bearing status: Yes Severe MUSCULOSKELETAL pain: No ADL Dysfunction: Yes Acute CVA w/Hemiparesis/Hemiplegia: No Decreased Functional Mobility/Strength: Yes Sprain/Strain: No Acute Post-op Mobility Dysfunction: No Total Points: 9 PT Screen per Nursing Assess ONCE Comment: Protocol Order Physician Instructions: Greater than 3 points order PT Admission Screenin Reason For Exam: Triggered on Admission Diagnosis: symptomatic anemia Open Wound/Cellutlitis/Pressure Ulcers: No Acute Fx/ORIF/Change in wt bearing status: Yes Severe MUSCULOSKELETAL pain: No ADL Dysfunction: Yes Acute CVA w/Hemiparesis/Hemiplegia: No Decreased Functional Mobility/Strength: Yes Sprain/Strain: No Acute Post-op Mobility Dysfunction: No Total Points: 9 Smoking Cessation Education ONCE Comment: Diagnosis: symptomatic anemia Smoking Status: Current every day smoker How long have you smoked: 60 years Have you smoked in the past 12 months: Yes Do you dip or chew tobacco: No 11/10/18 22:55 Respiratory Therapy Assessment DAILY Comment: Diagnosis: symptomatic anemia - Discharge Discharge Date: 11/11/18 Disposition: Home, Self-Care Condition: Stable Prescriptions: No Action Potassium Chloride 10 Meq Tab* [Klor Con 10 MEQ] 10 meq PO BID Insulin Lispro Protamin/Lispro [Humalog Mix 75-25 Kwikpen] 20 units SQ BID PRN PRN Reason: Hyperglycemia Apixaban [Eliquis] 2.5 mg PO BID Magnesium Oxide [Magnesium] 400 mg PO DAILY Ferrous Fumarate/Ascorbic Acid [Praful-Sequels 65-25 mg Caplet] 1 each PO DAILY 30 Days #30 tablet.er Follow up with: MECHE PHAM MD [Primary Care Provider] - 1 Week
[2018-11-11] MEDS ORDERED: ELIQUIS 2.5 MG TABLET PO ONE (23:00)
== END 2018-11-11 14:10 | disposition home or self-care (01) ==
LOC: ED 17:38 → MED SURG 20:47
PROVIDERS: ADMIT General Practice; ATTEND General Practice
DX: D64.9 Anemia, unspecified (principal); R53.1 Weakness; E11.9 Type 2 diabetes mellitus without complications; I25.10 Atherosclerotic heart disease of native coronary artery without angina pectoris; E78.00 Pure hypercholesterolemia, unspecified; Z79.01 Long term (current) use of anticoagulants; Z79.899 Other long term (current) drug therapy; F17.200 Nicotine dependence, unspecified, uncomplicated
CPT/HCPCS: 36415; 36430; 71045; 80048; 80053; 81001; 82150; 82962; 83605; 83690; 83880; 84484; 85014; 85018; 85025; 86850; 86900; 86901; 86922; 87040; 87086; 93005; 94760; 99285; G0378; A9270-GY